=== PATIENT | female | born 1930 | race Caucasian/White ===

== ENCOUNTER 2016-09-19 00:51 | Inpatient (IN) ==
--- NOTE | 2016-09-19 01:09 | Emergency Department Note ---
Disposition Clinical Impression: Atrial fibrillation with RVR, Palpitations Disposition: Admitted As Inpatient Condition: Good General Adult HPI - General Chief complaint: ED Arrhythmia/Palpitations Stated complaint: "heart racing" Time Seen by Provider: 09/19/16 00:57 Source: patient Limitations: no limitations Nursing Notes Reviewed: Yes Vital Signs Reviewed: Yes - History of Present Illness HPI Narrative: 86-year-old female who reports that she ran out of her Pradaxa prescription this morning. She did not know if she could take the rest of her medications if she was not also taken the Pradaxa showed she did not take any of her morning medications. By mid afternoon she was able to refill her Pradaxa and took her evening medications. She has had some generalized fatigue and palpitations and was worried that her heart rate was elevated so she presents to the emergency department. She has a history of A. fib and is taking Pradaxa , diltiazem, Toprol. She has past medical history of A. fib, TIA, hyperlipidemia, hypertension. She states she is having mild occasional palpitations and mild weakness. Otherwise she has no shortness of breath or chest pain. No lower extremity edema that is new. No issues with diarrhea or urinary Radiation: non-radiation Pain Scale: 0 Consistency: constant Improves with: nothing Worsens with: nothing Associated symptoms: Reports: denies other symptoms Treatments Prior to Arrival: none - Related Data Home Medications Medication Instructions Recorded Confirmed Aspirin EC 09/19/16 Cetirizine HCl 09/19/16 Diltiazem HCl [Cardizem] 180 mg BID 09/19/16 09/19/16 Fish Oil [place]-3 Softgel DAILY 09/19/16 Hydrochlorothiazide 25 mg QAM 09/19/16 09/19/16 Lisinopril 20 mg BID 09/19/16 09/19/16 Metoprolol ER-Hctz 25-12.5 mg 25 mg QAM 09/19/16 09/19/16 Montelukast Sodium 10 mg QAM 09/19/16 09/19/16 Oyster Shell Calcium-Vit D Tab 500 unit BID 09/19/16 09/19/16 Pradaxa 75 mg BID 09/19/16 09/19/16 Symbicort 160/4.5 09/19/16 Allergies Allergy/AdvReac Type Severity Reaction Status Date / Time No Known Allergies Allergy Verified 09/19/16 00:55 All systems ED: reviewed and negative except as stated. Constitutional: Denies: fever Eyes: Denies: vision change ENT ED: Denies: throat pain Cardiovascular: Reports: palpitations. Denies: chest pain Respiratory: Denies: cough Gastrointestinal: Denies: abdominal pain, nausea, vomiting Musculoskeletal: Denies: back pain Integumentary: Denies: rash Neurological: Denies: headache Endocrine: Reports: fatigue Past Medical History - Past Medical History Medical history: Reports: atrial fibrillation, hypertension, TIA - Social History Smoking Status: Never smoker Smokeless Tobacco Status: No Alcohol use: Reports: none Drug use: Reports: none Physical Exam - General Limitations: no limitations General appearance: alert, in no apparent distress - Head Head exam: atraumatic - Eye Eye exam: Present: normal appearance, PERRL, EOMI - ENT ENT exam: normal exam, normal oropharynx - Neck Neck exam: Present: normal inspection - Chest Chest inspection: Present: normal inspection - Respiratory Respiratory exam: Present: normal lung sounds bilaterally. Absent: respiratory distress - Cardiovascular Cardiovascular exam: Present: tachycardia, irregular rhythm - Abdominal Exam Abdominal exam: Present: soft, Non-Tender - Extremities Exam Extremities exam: Present: normal inspection - Back Exam Back exam: Present: normal inspection - Neurological Exam Neurological exam: Present: alert, oriented X3 - Psychiatric Psychiatric exam: Present: normal affect, normal mood - Skin Skin exam: Present: warm, dry Course Course Narrative: She presents in A. fib RVR with a rate of 150. EKG does not demonstrate EKG changes aside from A. fib with RVR. She has a known reason why she is in A. fib RVR as she did not take her morning medications which includes 180 mg of diltiazem ER. She is not having any symptoms such as chest pain or shortness of breath. She is not in congestive heart failure. We will draw basic lab work and in addition give her a bolus of Cardizem. If she becomes rate controlled and is able to maintain that we will observe her here for a while before discharging her to go home and resume her home dosage of her medications. If she is unable to keep her rate controlled and we will place her on a Cardizem drip and admit Cardizem bolus did not affect her heart rate. We are starting another bolus with a drip and will admit her to the hospital. She is asymptomatic this time Dr Tariq accepts Vital Signs Temperature 97.7 F 09/19/16 00:52 Pulse Rate 158 09/19/16 00:52 Respiratory Rate 20 09/19/16 00:52 Blood Pressure 200/122 09/19/16 00:52 O2 Sat by Pulse Oximetry 96 09/19/16 00:52 Temperature 97.7 F 09/19/16 00:52 Pulse Rate 134 09/19/16 02:46 Respiratory Rate 16 09/19/16 03:02 Blood Pressure 171/99 09/19/16 03:02 O2 Sat by Pulse Oximetry 95 09/19/16 02:46 Oxygen Delivery Oxygen Delivery Room Air Medical Decision Making - Medical Records Medical records reviewed: Yes I reviewed the patient's medical records. - Lab Data Lab results reviewed: Yes I reviewed the patient's lab results. Result diagrams: 09/19/16 01:07 09/19/16 01:07 Lab Results 09/19/16 09/19/16 09/19/16 Range/Units 01:07 01:07 01:07 WBC 10.4 (4.3-11.1) K/mcL RBC 4.95 (3.82-4.97) M/mcL Hgb 14.1 (11.5-15.4) g/dL Hct 41.9 (35.3-44.9) % MCV 84.6 (83.0-100.0) fL MCH 28.5 (28.0-33.3) pg MCHC 33.7 (31.6-35.5) g/dL RDW 12.2 (11.5-14.5) % Plt Count 163 (140-400) K/mcL MPV 10.9 (9.4-12.4) fL Immature Gran % 0.2 (0-4) % Seg Neutrophils % 45.4 % Lymphocytes % 41.6 % Monocytes % 8.2 % Eosinophils % 4.1 % Basophils % 0.5 % Neutrophils # 4.7 (1.6-8.9) K/mcL Lymphocytes # 4.3 (0.6-4.6) K/mcL Monocytes # 0.9 (0.0-1.3) K/mcL Eosinophils # 0.4 (0.0-0.6) K/mcL Basophils # 0.1 (0.0-0.2) K/mcL PT (9.4-12.1) Seconds INR APTT (26.0-36.0) Seconds Sodium 133 L (136-145) mEq/L Potassium 3.8 (3.5-4.5) mEq/L Chloride 97 L (98-109) mEq/L Carbon Dioxide 27 (19-29) mEq/L BUN 30 H (7-20) mg/dL Creatinine 1.09 (0.57-1.11) mg/dL Est GFR ( Amer) 58 L (> 60) Est GFR (Non-Af Amer) 48 L (> 60) BUN/Creatinine Ratio 28 H (6-26) Glucose 122 H (70-99) mg/dL Calculated Osmolality 283 (280-300) Calcium 10.3 (8.6-10.8) mg/dL Troponin I 0.01 (0-0.03) ng/mL TSH 4.754 (0.350-4.840) mcIU/mL 09/19/16 Range/Units 01:36 WBC (4.3-11.1) K/mcL RBC (3.82-4.97) M/mcL Hgb (11.5-15.4) g/dL Hct (35.3-44.9) % MCV (83.0-100.0) fL MCH (28.0-33.3) pg MCHC (31.6-35.5) g/dL RDW (11.5-14.5) % Plt Count (140-400) K/mcL MPV (9.4-12.4) fL Immature Gran % (0-4) % Seg Neutrophils % % Lymphocytes % % Monocytes % % Eosinophils % % Basophils % % Neutrophils # (1.6-8.9) K/mcL Lymphocytes # (0.6-4.6) K/mcL Monocytes # (0.0-1.3) K/mcL Eosinophils # (0.0-0.6) K/mcL Basophils # (0.0-0.2) K/mcL PT 13.3 H (9.4-12.1) Seconds INR 1.2 APTT 50.8 H (26.0-36.0) Seconds Sodium (136-145) mEq/L Potassium (3.5-4.5) mEq/L Chloride (98-109) mEq/L Carbon Dioxide (19-29) mEq/L BUN (7-20) mg/dL Creatinine (0.57-1.11) mg/dL Est GFR ( Amer) (> 60) Est GFR (Non-Af Amer) (> 60) BUN/Creatinine Ratio (6-26) Glucose (70-99) mg/dL Calculated Osmolality (280-300) Calcium (8.6-10.8) mg/dL Troponin I (0-0.03) ng/mL TSH (0.350-4.840) mcIU/mL - Radiology Data Radiology results reviewed: Yes I reviewed the patient's radiology results. - EKG Data EKG #1 EKG attestation: Yes I reviewed and interpreted this EKG. Rate: tachycardia Rhythm: A.Fib [place]/QRS: normal Interpretation: other (A. fib with RVR. Rate 150. No significant ST changes) Critical Care Time Critical Care Time: Yes Total Critical Care Time: 45 Attestation: Critical care performed: Time is exclusive of separately billable procedures. Time includes: direct patient care, patient reassessment, coordination of patient care, interpretation of data (laboratory data, radiology data, and respiratory data), review of patient's medical records, medical consultation and documentation of patient care. Procedures included in critical care time: Procedures excluded from critical care time: Attestation Statement - Attestation Attestation: I, Amadeo Jacobsen MD, personally evaluated this patient and discussed their management with the resident physician. I reviewed the resident's note and agree with the documented findings, medical decision making, and plan of care. 86-year-old female presents to the emergency department with a complaint of palpitations and weakness. States that she can feel her heart racing slightly and feels weak. She has a history of atrial fibrillation with RVR and this feels like similar episodes. She did miss her morning doses of her medications yesterday because she ran out of her Pradaxa and did not know if she could take her other medications without taking Pradaxa. She had her Pradaxa refill but cannot pick it up until tomorrow. She did go ahead and take her evening medications. She denies any chest pain or shortness of breath. No dizziness or syncope. On examination patient is a well-developed well-nourished elderly female in no acute distress. She is alert and oriented 3. There is no cyanosis or diaphoresis. Chest is nontender to palpation. Breath sounds are clear and equal bilaterally. Heart is tachycardic and irregularly irregular. Abdomen soft and nontender with normal bowel sounds. EKG shows atrial fibrillation with RVR. Chest x-ray negative. Labs reviewed. Patient received a 15 mg bolus of Cardizem with some improvement in her heart rate that she still stated the range of about 100 to 130. She was placed on a Cardizem drip. The hospitalist, Dr. Tariq, was consulted and accepted admission of the patient.
[2016-09-19 01:21] LABS: Basophils # 0.1 K/mcL (0.0-0.2); Basophils % 0.5 %; Eosinophils # 0.4 K/mcL (0.0-0.6); Eosinophils % 4.1 %; Hematocrit 41.9 % (35.3-44.9); Hemoglobin 14.1 g/dL (11.5-15.4); Immature Granulocytes % 0.2 % (0-4); Lymphocytes # 4.3 K/mcL (0.6-4.6); Lymphocytes % 41.6 %; Mean Corpuscular HGB Conc 33.7 g/dL (31.6-35.5); Mean Corpuscular Hemoglobin 28.5 pg (28.0-33.3); Mean Corpuscular Volume 84.6 fL (83.0-100.0); Mean Platelet Volume 10.9 fL (9.4-12.4); Monocytes # 0.9 K/mcL (0.0-1.3); Monocytes % 8.2 %; Neutrophils # 4.7 K/mcL (1.6-8.9); Platelet Count 163 K/mcL (140-400); Red Blood Count 4.95 M/mcL (3.82-4.97); Red Cell Distribution Width 12.2 % (11.5-14.5); Segmented Neutrophils % 45.4 %
[2016-09-19 01:33] LABS: Calcium 10.3 mg/dL (8.6-10.8); Potassium 3.8 mEq/L (3.5-4.5)
[2016-09-19 01:49] LABS: INR 1.2; Prothrombin Time 13.3 Seconds (9.4-12.1)
[2016-09-19 01:52] LABS: Activated Partial Thrombo Time 50.8 Seconds (26.0-36.0)
[2016-09-19 01:55] LABS: Thyroid Stimulating Hormone 4.754 mcIU/mL (0.350-4.840)
[2016-09-19] MEDS ORDERED: Naloxone 0.4 MG/ML INJ IVP PRN (02:29)
[2016-09-19] MEDS ORDERED: Acetaminophen 325 MG TABLET PO PRN (02:29)
[2016-09-19] MEDS ORDERED: Ondansetron 4 MG/2 ML VIAL IVP PRN (02:29)
[2016-09-19] MEDS ORDERED: Metoprolol XL (24 HR) Succ 25 MG TAB.ER.24H PO SCH (02:30)
[2016-09-19] MEDS: *HR* Dabigatran 75 MG CAPSULE PO SCH ×2 (02:37→09:08)
[2016-09-19] MEDS ORDERED: 0.9 % Sodium Chloride 500 ML ONE (02:49)
--- NOTE | 2016-09-19 03:24 | Internal Med History&Physical ---
Date of Encounter: 09/19/16 Time of Encounter: 03:40 Assessment and Plan (1) Atrial fibrillation Current visit: Yes Status: Chronic Patient has a chronic history of atrial fibrillation and missed her dose of Cardizem and Toprol-XL. Patient is currently on Cardizem drip. Continue the same. Admit to inpatient status due to the need for intravenous Cardizem drip to control her heart rate. Expected to be in the hospital for at least overnights. Moderate risk due to risk of lethal arrhythmias. Expected discharge disposition is to home. Resume by mouth heart rate control medications. Resume pradaxa. She can be discharged home and her heart rate is adequately controlled on her by mouth medications and she is off the Cardizem drip. Qualifiers: Atrial fibrillation type: chronic Qualified Code(s): I48.2 - Chronic atrial fibrillation (2) HTN (hypertension) Current visit: Yes Status: Chronic Control blood pressure. Continue current medications at home doses. Qualifiers: Hypertension type: essential hypertension Qualified Code(s): I10 - Essential (primary) hypertension Internal Medicine - H&P: HPI Chief complaint: Palpitations Admitted From: Emergency Dept Plans for Post Hospital Care: Home History of present illness: Ms. Mcfarlane is a 86 year old female with a history of atrial fibrillation on pradaxa who presented to the emergency department due to palpitations. Apparently, the patient ran out of her anticoagulant medication. 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 However, the pharmacy stated that the prescription would not be ready for pickup until 09/19/2016. The patient was under the mistaken impression that she will should not take any of her other medications unless she takes her anticoagulant medication. Hence, she did not take her Cardizem or Toprol-XL on the morning of 09/18/2016. However, she states that she took her Cardizem 180 mg on the evening of 2016. The patient started experiencing palpitations last night around 10 PM. Hence, she presented to the emergency department. She was found to have a heart rate of 150s. She was given intravenous Cardizem in the placed on a Cardizem drip. She was given her anticoagulant medication in the emergency department. She reports intermittent lightheadedness. She denies any chest pain, shortness of breath, cough or wheezing. She denies any fever or chills. She denies any swelling in her legs. She denies abdominal pain, nausea or vomiting. Past Med Surg Social Fam HX - Past Medical History Attestation: Yes The following information was validated with the patient. Source: patient Medical history: atrial fibrillation, hypertension, TIA Psychiatric history: no psych history - Past Surgical History Surgical History: non-contributory - Social History Smoking Status: Never smoker Smokeless Tobacco Status: No Alcohol use: none Drug use: none - Additional Family History Additional family history: Reviewed; not pertinent Internal Medicine - H&P: Meds Aspirin EC 09/19/16 [History] Cetirizine HCl 09/19/16 [History] Diltiazem HCl [Cardizem] 180 mg BID 09/19/16 [History] Fish Oil [place]-3 Softgel DAILY 09/19/16 [History] Hydrochlorothiazide 25 mg QAM 09/19/16 [History] Lisinopril 20 mg BID 09/19/16 [History] Metoprolol ER-Hctz 25-12.5 mg 25 mg QAM 09/19/16 [History] Montelukast Sodium 10 mg QAM 09/19/16 [History] Oyster Shell Calcium-Vit D Tab 500 unit BID 09/19/16 [History] Pradaxa 75 mg BID 09/19/16 [History] Symbicort 160/4.5 09/19/16 [History] Allergies No Known Allergies Allergy (Verified 09/19/16 00:55) All Systems PM: A 10-system review of systems was performed and is negative for pertinent findings except as documented above in the HPI. Review of systems: 10 systems have been reviewed and are negative except as mentioned in the history of present illness - Constitutional Vitals: Temp Pulse Resp BP Pulse Ox 97.7 F 134 16 171/99 95 09/19/16 00:52 09/19/16 02:46 09/19/16 03:02 09/19/16 03:02 09/19/16 02:46 Exam: Gen.: Lying in bed. No acute distress. Eyes: Pupils equal, round and reactive to light. Extraocular muscles intact. ENT: Moist mucous membranes. No oropharyngeal erythema or discharge. Chest: Clear to auscultation bilaterally. No adventitious sounds present. CVS: First and second heart sounds present. No murmurs, rubs or gallops. Irregularly irregular rate and rhythm. Tachycardia present. Abdomen: Soft, nontender, nondistended. Bowel sounds present. No hepatosplenomegaly. Skin: No decubitus ulcers appreciated. EQUITIES ANALYST: No focal neuro deficits present. Psychiatric: Alert, awake and oriented to time, place and person. Lymphatic system: No lymphadenopathy appreciated Internal Med - H&P Results - Labs CBC & Chem 7: 09/19/16 01:07 09/19/16 01:07 - EKG Data -: EKG Interpreted by Myself (Atrial fibrillation with rapid ventricular response) - Diagnostic Studies Chest x-ray Status: image reviewed by me (No acute infiltrates seen)
[2016-09-19] MEDS: Diltiazem CD (24hr) 180 MG CAPSULE PO SCH ×2 (04:10→09:08)
--- NOTE | 2016-09-19 08:35 | Discharge Summary ---
<Ailyn Rasmussen - Last Filed: 09/19/16 08:31> Date of Encounter: 09/19/16 Time of Encounter: 08:31 - Discharge Diagnosis (1) Palpitations Status: Acute (2) Atrial fibrillation Status: Chronic Qualifiers: Atrial fibrillation type: chronic Qualified Code(s): I48.2 - Chronic atrial fibrillation (3) HTN (hypertension) Status: Chronic Qualifiers: Hypertension type: essential hypertension Qualified Code(s): I10 - Essential (primary) hypertension - Discharge Medications Prescriptions: Dabigatran [Pradaxa] 75 mg PO BID #60 capsule Diltiazem CD (24hr) [Cardizem CD] 180 mg PO DAILY #30 cap.er.24h Metoprolol Succinate 25 mg PO DAILY #30 tab.er.24h Home Medications: Albuterol Sulfate [Ventolin Hfa] 2 puff IH Q4H PRN 09/19/16 [History] Aspirin Enteric Coated [Aspirin EC] 81 mg PO DAILY 09/19/16 [History] Besifloxacin HCl [Besivance] 1 drop OP TID 09/19/16 [History] Bromfenac Sodium [Prolensa] 1 drop OP TID 09/19/16 [History] Budesonide/Formoterol 160/4.5 [Symbicort 160/4.5] 2 puff IH BIDR 09/19/16 [ History] Calcium Carbonate/Vitamin D3 [Oyster Shell Calcium-Vit D Tab] 1 tab PO BID 09/19 [History] Cetirizine HCl [All Day Allergy] 10 mg PO DAILY 09/19/16 [History] Dabigatran [Pradaxa] 75 mg PO BID #60 capsule 09/19/16 [Rx] Difluprednate [Durezol] 1 drop OP TID 09/19/16 [History] Diltiazem CD (24hr) [Cardizem CD] 180 mg PO DAILY #30 cap.er.24h 09/19/16 [Rx] Lisinopril [Zestril] 20 mg PO BID 09/19/16 [History] Metoprolol Succinate 25 mg PO DAILY #30 tab.er.24h 09/19/16 [Rx] Montelukast [Singulair] 10 mg PO DAILY 09/19/16 [History] [place]-3S/Dha/Epa/Fish Oil [Fish Oil [place]-3 Softgel] 1,000 mg PO DAILY 09/19/16 [History] hydroCHLOROthiazide [Hydrochlorothiazide] 25 mg PO DAILY 09/19/16 [History] Allergies/Adverse Reactions: Allergies No Known Allergies Allergy (Verified 09/19/16 00:55) Date of admission: 09/19/16 04:12 Primary care physician: Daniel Ceja MD Discharging clinician: Ailyn Rasmussen Anticipated date of discharge: 09/19/16 - Patient Status Disposition: Home, Self-Care Condition: Good Functional capacity at discharge: independent ambulation Overall status at discharge: patient is progressing back to baseline - Discharge Instructions Instructions: Metoprolol (By mouth), Diltiazem (By mouth), Dabigatran (By mouth ), Atrial Fibrillation (DC), Chronic Hypertension (DC) Follow Up With: Daniel Ceja MD [Primary Care Provider] - 10/03/16 1:30 pm Rosa Isela Bhagat DO [Partnered Physician] - (office will call patient at home with appointment) - Diet and Activity Activity: increase activity as tolerated Diet: advance to your usual diet Interval History: Ms. Mcfarlane is a 86 yo female with a history of atrial fibrillation on pradaxa who presented to the emergency department due to palpitations. Apparently, the patient ran out of her anticoagulant medication. This prescription was called in by her basket hand weaver. However, the pharmacy stated that the prescription would not be ready for pickup until 09/19/2016. The patient was under the mistaken impression that she will should not take any of her other medications unless she takes her anticoagulant medication, so did not take her Cardizem or Toprol-XL on 09/18/2016. She was having heart rate of 150-160s She was given intravenous Cardizem in the placed on a Cardizem drip overnight. Once she was rate controlled at 80s-90s, she was converted to PO medicationa dncardizem drip was stopped. She was given missed dose of anticoagulant. She denies any chest pain, shortness of breath, cough or wheezing. She denies any fever or chills. She denies any swelling in her legs. She denies abdominal pain, nausea or vomiting Hospital course: Ms. Mcfarlane is a 86 year old female - Time Spent with Patient Total time spent providing and/or coordinating discharge services: Less than 30 minutes - Constitutional Vitals: Temp Pulse Resp BP Pulse Ox 98.4 F 75 16 130/82 97 09/19/16 06:48 09/19/16 06:48 09/19/16 06:48 09/19/16 06:48 09/19/16 04:09 General appearance: Present: cooperative, A&O X 3, pleasant, no acute distress, answers questions appropriately - Head Head exam: Present: atraumatic, normocephalic - Eye Eye exam: Present: EOMI Pupils: Present: PERRL Additional comments: right eye covered with bandage from recent cataract surgery - Neck Neck exam general surgery: Present: supple, trachea midline. Absent: lymphadenopathy - Respiratory Respiratory exam: Present: CTAB. Absent: accessory muscle use, rales, rhonchi, wheezes - Cardiovascular Cardiovascular exam: Present: irregular rhythm (HR 80s-90s), +S1, +S2. Absent: tachycardia - GI/Abdominal GI/Abdominal exam: Present: normal bowel sounds, soft, no peritoneal signs. Absent: distended, tenderness - Extremities Exam Extremities exam: Present: warm, radial pulses palpable and symetrical. Absent : calf tenderness, cyanotic, pedal edema - Neurological Exam Neurological exam: Present: CN II-XII intact, oriented X3, no focal deficits. Absent: pronater drift, facial droop, speech deficit - Skin Skin exam: Present: dry, intact <Jermaine Rea - Last Filed: 09/19/16 12:57> Date of Encounter: 09/19/16 - Discharge Diagnosis (1) Atrial fibrillation Priority: Primary Status: Chronic Qualifiers: Atrial fibrillation type: chronic Qualified Code(s): I48.2 - Chronic atrial fibrillation (2) Palpitations Priority: Secondary Status: Resolved (3) HTN (hypertension) Priority: Secondary Status: Chronic Qualifiers: Hypertension type: essential hypertension Qualified Code(s): I10 - Essential (primary) hypertension Date of admission: 09/19/16 04:12 Primary care physician: Daniel Ceja MD Hospital course: Ms. Mcfarlane is a 86 year old female - Time Spent with Patient Total time spent providing and/or coordinating discharge services: My time for discharge was 36min - Constitutional Vitals: Temp Pulse Resp BP Pulse Ox 98.4 F 89 16 117/60 97 09/19/16 06:48 09/19/16 09:12 09/19/16 09:12 09/19/16 09:12 09/19/16 09:12 - Attending Attestation I examined this patient and my medical decision-making was reviewed with the Resident Physician on 09/19/16. I agree with the documented findings, disposition and treatment plan as described except to the extent set forth below. Ms. Mcfarlane is doing OK this morning. She is now rate controlled and asymptomatic. No CP or SOB. No fever. Exam Alert. Comfortable Heart irreg Lungs clear No edema Plan D/C home today on usual meds. This patient was admitted inpatient at the time of admission. At that time the anticipated LOS was greater than 2 midnights as she was on a cardizem drip with rapid a fib. She has quickly become rate controlled and is at baseline and therefore will be discharged today after only 1 midnight.
[2016-09-19 09:19] VITALS: BP 117/60
--- NOTE | 2016-09-19 11:33 | Electrocardiograph Report ---
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
== END 2016-09-19 12:30 | disposition home or self-care (01) | DRG 310 ==
LOC: 2NENU 00:51 → EMEROO 00:51 → 2NENU 03:08
PROVIDERS: ADMIT Internal Medicine; ATTEND Internal Medicine

== ENCOUNTER 2016-09-21 13:29 | Observation (INO) ==
--- NOTE | 2016-09-21 13:58 | Emergency Department Note ---
Disposition Clinical Impression: Atrial fibrillation with RVR Disposition: Admitted As Inpatient Condition: Good Arrhythmia/Palpitations HPI - General Chief Complaint: ED Arrhythmia/Palpitations Stated Complaint: High BP/HR "hx of AFib" Time Seen by Provider: 09/21/16 13:46 Source: patient Limitations: no limitations Nursing Notes Reviewed: Yes Vital Signs Reviewed: Yes - History of Present Illness HPI Narrative: Patient was recently seen and evaluated for atrial fibrillation with RVR and discharged after rate control. Patient discharged 2 days ago. Patient was told to not take her Cardizem for 2 days and presents today one hour after taking her next dose of Cardizem secondary to heart rate of 170. Patient is currently back in A. fib with RVR. There is some associated mild chest pressure with her initial rapid heart rate. Patient states no previous heart attack and has not had a recent stress test or cardiac catheter. Patient is a patient of Dr. Bhagat. - Related Data Home Medications Medication Instructions Recorded Confirmed Albuterol Sulfate [Ventolin Hfa] 2 puff IH Q4H PRN 09/19/16 09/21/16 Aspirin Enteric Coated [Aspirin EC] 81 mg PO DAILY 09/19/16 09/21/16 Besifloxacin HCl [Besivance] 1 drop OP TID 09/19/16 09/21/16 Bromfenac Sodium [Prolensa] 1 drop OP TID 09/19/16 09/21/16 Budesonide/Formoterol 160/4.5 2 puff IH BIDR 09/19/16 09/21/16 [Symbicort 160/4.5] Calcium Carbonate/Vitamin D3 1 tab PO BID 09/19/16 09/21/16 [Oyster Shell Calcium-Vit D Tab] Cetirizine HCl [All Day Allergy] 10 mg PO DAILY 09/19/16 09/21/16 Difluprednate [Durezol] 1 drop OP TID 09/19/16 09/21/16 Lisinopril [Zestril] 20 mg PO BID 09/19/16 09/21/16 Montelukast [Singulair] 10 mg PO DAILY 09/19/16 09/21/16 [place]-3S/Dha/Epa/Fish Oil [Fish 1,000 mg PO DAILY 09/19/16 09/21/16 Oil [place]-3 Softgel] hydroCHLOROthiazide 25 mg PO DAILY 09/19/16 09/21/16 [Hydrochlorothiazide] Previous Rx's Medication Instructions Recorded Dabigatran [Pradaxa] 75 mg PO BID #60 capsule 09/19/16 Diltiazem CD (24hr) [Cardizem CD] 180 mg PO DAILY #30 cap.er.24h 09/19/16 Metoprolol Succinate 25 mg PO DAILY #30 tab.er.24h 09/19/16 Allergies Allergy/AdvReac Type Severity Reaction Status Date / Time No Known Allergies Allergy Verified 09/19/16 00:55 Review of Systems: CONSTITUTIONAL: No weight loss, fever, chills, weakness or fatigue. HEENT: Eyes: No visual changes. Ears, Nose, Throat: No hearing loss, difficulty talking or unable to swallow. SKIN: No rash or itching. CARDIOVASCULAR: Palpitations and chest pressure RESPIRATORY: No shortness of breath, cough or sputum. GASTROINTESTINAL: No anorexia, nausea, vomiting or diarrhea. No abdominal pain or blood. GENITOURINARY: No burning on urination or hematuria. NEUROLOGICAL: No headache, dizziness, syncope, paralysis, ataxia, numbness or tingling in the extremities. No change in bowel or bladder control. MUSCULOSKELETAL: No muscle pain, back pain, joint pain or stiffness. Past Medical History - Past Medical History Medical history: Reports: atrial fibrillation, hypertension, TIA Surgical history: Reports: non-contributory Psychiatric history: Reports: no psych history - Social History Smoking Status: Never smoker Smokeless Tobacco Status: No Alcohol use: Reports: none Drug use: Reports: none Physical Exam General appearance: NAD, conversant Eyes: anicteric sclerae, moist conjunctivae; PERRL HENT: Atraumatic; oropharynx clear with moist mucous membranes and no mucosal ulcerations Neck: Normal inspection; Trachea midline; FROM, supple Lungs: CTA, with normal respiratory effort and no intercostal retractions CV: Irregular rate and rhythm, tachycardic Abdomen: Soft, non-tender; no rebound or gaurding Extremities: No peripheral edema or extremity lymphadenopathy Skin: Normal temperature; no rash, ulcers or lesions Psych: Appropriate mood and affect Neuro: alert and oriented to person, place and time - General Limitations: no limitations General appearance: alert, in no apparent distress Course - Reevaluation(s) Reevaluation #1: Patient's heart rate is not controlled with the Cardizem bolus as well as by mouth Cardizem. Patient given another bolus as well as a Cardizem drip. Her heart rate increased to the 130s and 140s and her blood pressure started to increase again to systolic of 170. Patient will be brought in for further management. - Consultations Consultation #1: Discussed with Dr. Salinas. As long as heart rate is controlled in the low 100s she can be given a dose of Cardizem 30 mg by mouth every 6 and follow-up outpatient. Consultation #2: Dicussed with hospitalistArnie. Pt accepted. Vital Signs Temperature 98.3 F 09/21/16 13:45 Pulse Rate 160 09/21/16 13:45 Respiratory Rate 18 09/21/16 13:45 Blood Pressure 179/117 09/21/16 13:45 O2 Sat by Pulse Oximetry 96 09/21/16 13:45 Temperature 98.3 F 09/21/16 13:45 Pulse Rate 94 09/21/16 16:30 Respiratory Rate 18 09/21/16 17:21 Blood Pressure 126/90 09/21/16 17:21 O2 Sat by Pulse Oximetry 93 09/21/16 16:30 Oxygen Delivery Oxygen Delivery Room Air Arrhythmia/Palpitations - Medical Records Medical records reviewed: Yes I reviewed the patient's medical records. - Lab Data Lab results reviewed: Yes I reviewed the patient's lab results. Result diagrams: 09/21/16 14:06 09/21/16 14:06 Lab Results 09/21/16 09/21/16 09/21/16 Range/Units 14:06 14:06 14:06 WBC 9.9 (4.3-11.1) K/mcL RBC 4.87 (3.82-4.97) M/mcL Hgb 14.1 (11.5-15.4) g/dL Hct 42.3 (35.3-44.9) % MCV 86.9 (83.0-100.0) fL MCH 29.0 (28.0-33.3) pg MCHC 33.3 (31.6-35.5) g/dL RDW 12.3 (11.5-14.5) % Plt Count 178 (140-400) K/mcL MPV 11.4 (9.4-12.4) fL Immature Gran % 0.2 (0-4) % Seg Neutrophils % 46.6 % Lymphocytes % 40.2 % Monocytes % 8.4 % Eosinophils % 3.9 % Basophils % 0.7 % Neutrophils # 4.6 (1.6-8.9) K/mcL Lymphocytes # 4.0 (0.6-4.6) K/mcL Monocytes # 0.8 (0.0-1.3) K/mcL Eosinophils # 0.4 (0.0-0.6) K/mcL Basophils # 0.1 (0.0-0.2) K/mcL Sodium 137 (136-145) mEq/L Potassium 4.0 (3.5-4.5) mEq/L Chloride 102 (98-109) mEq/L Carbon Dioxide 27 (19-29) mEq/L BUN 34 H (7-20) mg/dL Creatinine 1.15 H (0.57-1.11) mg/dL Est GFR ( Amer) 54 L (> 60) Est GFR (Non-Af Amer) 45 L (> 60) BUN/Creatinine Ratio 30 H (6-26) Glucose 115 H (70-99) mg/dL Calculated Osmolality 293 (280-300) Calcium 9.4 (8.6-10.8) mg/dL Magnesium 1.7 (1.6-2.6) mg/dL Troponin I 0.01 (0-0.03) ng/mL TSH 2.327 (0.350-4.840) mcIU/mL - EKG Data EKG attestation: Yes I reviewed and interpreted this EKG. EKG results narrative: EKG shows atrial fibrillation with ventricular rate of 162. QRS 71. QTC 343.ST elevations or depressions. EKG similar in appearance to 09/19/16.
[2016-09-21] MEDS ORDERED: 0.9 % Sodium Chloride 1,000 ML ONE (14:05)
[2016-09-21 14:12] LABS: Basophils # 0.1 K/mcL (0.0-0.2); Basophils % 0.7 %; Eosinophils # 0.4 K/mcL (0.0-0.6); Eosinophils % 3.9 %; Hematocrit 42.3 % (35.3-44.9); Hemoglobin 14.1 g/dL (11.5-15.4); Immature Granulocytes % 0.2 % (0-4); Lymphocytes % 40.2 %; Mean Corpuscular HGB Conc 33.3 g/dL (31.6-35.5); Mean Corpuscular Volume 86.9 fL (83.0-100.0); Mean Platelet Volume 11.4 fL (9.4-12.4); Monocytes # 0.8 K/mcL (0.0-1.3); Monocytes % 8.4 %; Neutrophils # 4.6 K/mcL (1.6-8.9); Platelet Count 178 K/mcL (140-400); Red Blood Count 4.87 M/mcL (3.82-4.97); Red Cell Distribution Width 12.3 % (11.5-14.5); Segmented Neutrophils % 46.6 %
[2016-09-21 14:23] LABS: Calcium 9.4 mg/dL (8.6-10.8); Magnesium 1.7 mg/dL (1.6-2.6)
--- NOTE | 2016-09-21 14:31 | Emergency Department Note ---
START Narrative - START START: I examined this patient and my medical decision-making was reviewed with the PEDIATRIC CRITICAL CARE NURSE/PA/Advanced Practice Nurse/Resident Physician. I agree with the documented findings, disposition and treatment plan as described except to the extent set forth below. pt back in A fib with RVR. HR coming down after bolus of med here. she looks well.
[2016-09-21 14:46] LABS: Thyroid Stimulating Hormone 2.327 mcIU/mL (0.350-4.840)
[2016-09-21] MEDS ORDERED: 0.9 % Sodium Chloride 1,000 ML IVC ONE (15:05)
[2016-09-21] MEDS ORDERED: Naloxone 0.4 MG/ML INJ IVP PRN (18:56)
[2016-09-21] MEDS ORDERED: Acetaminophen 325 MG TABLET PO PRN (18:56)
[2016-09-21] MEDS ORDERED: Ondansetron 4 MG/2 ML VIAL IVP PRN (18:56)
--- NOTE | 2016-09-21 20:59 | Internal Med History&Physical ---
Date of Encounter: 09/21/16 Time of Encounter: 21:07 Assessment and Plan (1) Atrial fibrillation with RVR Current visit: No Status: Acute Patient presented due to high heart rate, on presentation EKG showed A. fib with RVR heart rate of 162. Patient was given Cardizem bolus of 20 mg, and then 15 mg, as well as 30 mg by mouth, started on a Cardizem drip, her heart rate became controlled. We will give 12.5 mg of metoprolol tonight as well as 30 mg of Cardizem by mouth tonight and stop drip. Resume home doses of medications tomorrow morning, and cloudy metoprolol, Cardizem, and Pradaxa. Continuous threat monitoring analyst. (2) HTN (hypertension) Current visit: No Status: Chronic Patient's blood pressure has been controlled after getting Cardizem. Continue home doses of medications and monitor. Qualifiers: Hypertension type: essential hypertension Qualified Code(s): I10 - Essential (primary) hypertension (3) Difficulty following instructions Current visit: Yes Status: Acute Patient is just discharged 2 days ago for A. fib with RVR. That admission was due to confusion with her medications, as she had run out of her Pradaxa, and thought she was to stop her other medications if she was not taking her Pradaxa while she related it to be followed by the pharmacy. She again had confusion with her medication instructions, reporting that she thought she was to hold her blood pressure and heart rate medications if her blood pressure was well. Her blood pressure was in the 110s since discharge so she did not take any of her medications until today. Pharmacy education ordered. (4) DVT prophylaxis Current visit: Yes Status: Acute anti-embolic stockings Patient on Pradaxa for Afib. additional pharmacologic prophylaxis not warranted. Internal Medicine - H&P: HPI Chief complaint: palpitations Admitted From: Emergency Dept Plans for Post Hospital Care: Home History of present illness: Ms. Mcfarlane is a 86 year old female with hypertension, atrial fibrillation on Pradaxa, TIA who presented to the emergency department today with complaints of fast heart rate. Patient was just discharged 2 days ago for A. fib with RVR, she was confused about how to take her medication and thought she was told to hold all her blood pressure and heart rate medications if her blood pressure was low, so she just started taking her medications again today. She reports she checked her blood pressure and pulse and they were both high, heart rate in the 150s to 170s so she came to the emergency department today. She does report some chest pressure with a fast heart rate. She denies chest pain, shortness of breath, headache, lightheadedness, nausea, vomiting, diarrhea, fever, chills, sweats. Evaluation in the emergency department included an EKG which showed A. fib with heart rate 162. Troponin was normal at 0.01. All other labs were normal. She was given boluses of Cardizem, 30 mg of by mouth Cardizem, and started on a drip, and her heart rate was controlled in the 90s. On exam, patient alert and oriented, in no acute distress. Heart had a regular rhythm, rate controlled. Lungs are clear bilaterally to auscultation. No peripheral edema. Past Med Surg Social Fam HX - Past Medical History Medical history: atrial fibrillation, hypertension, TIA Psychiatric history: no psych history - Past Surgical History Surgical History: non-contributory - Social History Smoking Status: Never smoker Smokeless Tobacco Status: No Alcohol use: none Drug use: none - Family History Brother Age at : 84 Cause of : shingles Hx Family Cardiac Disorders: Yes (DC) Internal Medicine - H&P: Meds Albuterol Sulfate [Ventolin Hfa] 2 puff IH Q4H PRN 09/19/16 [History] Aspirin Enteric Coated [Aspirin EC] 81 mg PO DAILY 09/19/16 [History] Besifloxacin HCl [Besivance] 1 drop OP TID 09/19/16 [History] Bromfenac Sodium [Prolensa] 1 drop OP TID 09/19/16 [History] Budesonide/Formoterol 160/4.5 [Symbicort 160/4.5] 2 puff IH BIDR 09/19/16 [ History] Calcium Carbonate/Vitamin D3 [[place] Calcium-Vit D Tab] 1 tab PO BID 09/19 [History] Cetirizine HCl [All Day Allergy] 10 mg PO DAILY 09/19/16 [History] Dabigatran [Pradaxa] 75 mg PO BID #60 capsule 09/19/16 [Rx] Difluprednate [Durezol] 1 drop OP TID 09/19/16 [History] Diltiazem CD (24hr) [Cardizem CD] 180 mg PO DAILY #30 cap.er.24h 09/19/16 [Rx] Lisinopril [Zestril] 20 mg PO BID 09/19/16 [History] Metoprolol Succinate 25 mg PO DAILY #30 tab.er.24h 09/19/16 [Rx] Montelukast [Singulair] 10 mg PO DAILY 09/19/16 [History] [place]-3S/Dha/Epa/Fish Oil [Fish Oil [place]-3 Softgel] 1,000 mg PO DAILY 09/19/16 [History] hydroCHLOROthiazide [Hydrochlorothiazide] 25 mg PO DAILY 09/19/16 [History] Allergies No Known Allergies Allergy (Verified 09/19/16 00:55) All Systems PM: A 10-system review of systems was performed and is negative for pertinent findings except as documented above in the HPI. - Constitutional Constitutional: no chills, no fever(s), no night sweats - EENT Eyes: no change in vision, no discharge, no pain, no photophobia Ears: no ear discharge, no ear pain, no tinnitus Nose, mouth and throat: no dysphagia, no nasal discharge, no neck pain, no sore throat - Cardiovascular Cardiovascular ROS IM: palpitations, no chest pain, no diaphoresis, no dyspnea, no lightheadedness, no syncope - Respiratory Respiratory: no cough, no dyspnea, no wheezing, no excessive phlegm production - Gastrointestinal Gastrointestinal: no abdominal pain, no diarrhea, no hematemesis, no hematochezia, no melena, no nausea, no vomiting - Genitourinary Genitourinary: no change in urinary stream, no dysuria, no flank pain, no hematuria - Musculoskeletal Musculoskeletal ROS IM: no numbness, no tingling - Integumentary Integumentary IM: no rash, no unusual bruising - Neurological Neurological ROS: no confusion, no convulsions, no focal weakness, no numbness, no tingling, no tremor(s) - Hematologic/Lymphatic Hematologic/Lymphatic: no easy bruising - Constitutional Vitals: Temp Pulse Resp BP Pulse Ox 98.3 F 94 18 126/90 94 09/21/16 13:45 09/21/16 16:30 09/21/16 17:21 09/21/16 17:21 09/21/16 20:02 General appearance: Present: A&O X 3, pleasant, no acute distress - Head Head exam: Present: atraumatic, normocephalic - Eye Eye exam: Present: PERRL, conjuntiva pink, sclera anicteric Pupils: Present: PERRL - Neck Neck exam general surgery: Present: supple, trachea midline. Absent: lymphadenopathy - Respiratory Respiratory exam: Present: CTAB. Absent: accessory muscle use, rales, rhonchi, wheezes - Cardiovascular Cardiovascular exam: Present: RRR, +S1, +S2. Absent: diastolic murmur, gallop, rubs, systolic murmur - GI/Abdominal GI/Abdominal exam: Present: normal bowel sounds, soft, no peritoneal signs. Absent: distended, tenderness - Extremities Exam Extremities exam: Present: warm, radial pulses palpable and symetrical. Absent : calf tenderness, cyanotic, pedal edema - Neurological Exam Neurological exam: Present: CN II-XII intact, oriented X3, no focal deficits. Absent: pronater drift, facial droop, speech deficit - Skin Skin exam: Present: dry, intact Internal Med - H&P Results - Labs CBC & Chem 7: 09/21/16 14:06 09/21/16 14:06 Labs: All Lab Results (24 Hours) 09/21/16 09/21/16 09/21/16 Range/Units 14:06 14:06 14:06 WBC 9.9 (4.3-11.1) K/mcL RBC 4.87 (3.82-4.97) M/mcL Hgb 14.1 (11.5-15.4) g/dL Hct 42.3 (35.3-44.9) % MCV 86.9 (83.0-100.0) fL MCH 29.0 (28.0-33.3) pg MCHC 33.3 (31.6-35.5) g/dL RDW 12.3 (11.5-14.5) % Plt Count 178 (140-400) K/mcL MPV 11.4 (9.4-12.4) fL Immature Gran % 0.2 (0-4) % Seg Neutrophils % 46.6 % Lymphocytes % 40.2 % Monocytes % 8.4 % Eosinophils % 3.9 % Basophils % 0.7 % Neutrophils # 4.6 (1.6-8.9) K/mcL Lymphocytes # 4.0 (0.6-4.6) K/mcL Monocytes # 0.8 (0.0-1.3) K/mcL Eosinophils # 0.4 (0.0-0.6) K/mcL Basophils # 0.1 (0.0-0.2) K/mcL Sodium 137 (136-145) mEq/L Potassium 4.0 (3.5-4.5) mEq/L Chloride 102 (98-109) mEq/L Carbon Dioxide 27 (19-29) mEq/L BUN 34 H (7-20) mg/dL Creatinine 1.15 H (0.57-1.11) mg/dL Est GFR ( Amer) 54 L (> 60) Est GFR (Non-Af Amer) 45 L (> 60) BUN/Creatinine Ratio 30 H (6-26) Glucose 115 H (70-99) mg/dL Calculated Osmolality 293 (280-300) Calcium 9.4 (8.6-10.8) mg/dL Magnesium 1.7 (1.6-2.6) mg/dL Troponin I 0.01 (0-0.03) ng/mL TSH 2.327 (0.350-4.840) mcIU/mL 09/21/16 Range/Units 20:21 WBC (4.3-11.1) K/mcL RBC (3.82-4.97) M/mcL Hgb (11.5-15.4) g/dL Hct (35.3-44.9) % MCV (83.0-100.0) fL MCH (28.0-33.3) pg MCHC (31.6-35.5) g/dL RDW (11.5-14.5) % Plt Count (140-400) K/mcL MPV (9.4-12.4) fL Immature Gran % (0-4) % Seg Neutrophils % % Lymphocytes % % Monocytes % % Eosinophils % % Basophils % % Neutrophils # (1.6-8.9) K/mcL Lymphocytes # (0.6-4.6) K/mcL Monocytes # (0.0-1.3) K/mcL Eosinophils # (0.0-0.6) K/mcL Basophils # (0.0-0.2) K/mcL Sodium (136-145) mEq/L Potassium (3.5-4.5) mEq/L Chloride (98-109) mEq/L Carbon Dioxide (19-29) mEq/L BUN (7-20) mg/dL Creatinine (0.57-1.11) mg/dL Est GFR ( Amer) (> 60) Est GFR (Non-Af Amer) (> 60) BUN/Creatinine Ratio (6-26) Glucose (70-99) mg/dL Calculated Osmolality (280-300) Calcium (8.6-10.8) mg/dL Magnesium (1.6-2.6) mg/dL Troponin I 0.01 (0-0.03) ng/mL TSH (0.350-4.840) mcIU/mL - Diagnostic Studies Chest x-ray Additional comments: Chest X-Ray 09/21/16 13:57 IMPRESSION: No evidence of acute cardiopulmonary abnormality. D/ / Oc Reinoso MD / Oc Reinoso MD Interpreting Provider: Oc Reinoso MD
[2016-09-21] MEDS: *HR* Dabigatran 75 MG CAPSULE PO SCH (21:11)
[2016-09-21] MEDS: Lisinopril 20 MG TABLET PO SCH (21:17)
[2016-09-21] MEDS: Budesonide/Formoterol 160/4.5 MDI IH SCH (22:49)
[2016-09-22 03:02] LABS: Basophils # 0.1 K/mcL (0.0-0.2); Basophils % 0.6 %; Eosinophils # 0.3 K/mcL (0.0-0.6); Eosinophils % 4.1 %; Immature Granulocytes % 0.1 % (0-4); Lymphocytes # 2.6 K/mcL (0.6-4.6); Lymphocytes % 31.6 %; Mean Corpuscular HGB Conc 33.3 g/dL (31.6-35.5); Mean Corpuscular Hemoglobin 29.4 pg (28.0-33.3); Mean Corpuscular Volume 88.2 fL (83.0-100.0); Mean Platelet Volume 11.6 fL (9.4-12.4); Monocytes # 0.8 K/mcL (0.0-1.3); Monocytes % 9.2 %; Neutrophils # 4.6 K/mcL (1.6-8.9); Platelet Count 158 K/mcL (140-400); Red Blood Count 4.42 M/mcL (3.82-4.97); Red Cell Distribution Width 12.3 % (11.5-14.5); Segmented Neutrophils % 54.4 %
[2016-09-22 03:14] LABS: Calcium 9.1 mg/dL (8.6-10.8); Potassium 4.3 mEq/L (3.5-4.5)
[2016-09-22] MEDS: Lisinopril 20 MG TABLET PO SCH (08:23)
[2016-09-22] MEDS: Loratadine 10 MG TABLET PO SCH (08:23)
[2016-09-22] MEDS: *HR* Dabigatran 75 MG CAPSULE PO SCH ×2 (08:23→20:34)
[2016-09-22] MEDS: Diltiazem CD (24hr) 180 MG CAPSULE PO SCH (08:23)
[2016-09-22] MEDS: hydroCHLOROthiazide 25 MG TABLET PO SCH (08:23)
[2016-09-22] MEDS: Aspirin Enteric Coated 81 MG Tablet PO SCH (08:23)
[2016-09-22] MEDS: Metoprolol XL (24 HR) Succ 25 MG TAB.ER.24H PO SCH (08:23)
[2016-09-22] MEDS: Budesonide/Formoterol 160/4.5 MDI IH SCH ×2 (10:30→20:02)
--- NOTE | 2016-09-22 11:49 | Internal Med Progress Note ---
<Yeyo Romero - Last Filed: 09/22/16 11:46> Date of Encounter: 09/22/16 Time of Encounter: 11:46 - Assessment and plan (1) Atrial fibrillation with RVR Current Visit: No Status: Acute Assessment and plan: Patient misunderstood the medication instruction, no acute event overnight, her heart rate has been stable with combination of Cardizem CD 180 mg by mouth daily and Toprol-XL 25 mg by mouth daily, will continue to closely monitor her heart rate for the next 24 hours, likely discharge to home tomorrow. Continue Pradaxa for chronic anticoagulation therapy. (2) HTN (hypertension) Current Visit: No Status: Chronic Assessment and plan: We will cut down lisinopril to 20 mg by mouth daily, continue calcium channel new, beta new, hydrochlorothiazide, blood pressure has been stable. Qualifiers: Hypertension type: essential hypertension Qualified Code(s): I10 - Essential (primary) hypertension (3) DVT prophylaxis Current Visit: Yes Status: Acute Assessment and plan: Pradaxa. - Subjective Interval history: Patient seen and examined. Patient states that she checks her blood pressure and heart rate at home and adjust medication based on those numbers by her own discretion, no acute event overnight, no active chest pain or shortness of breath at this time. - Constitutional Vitals: Temp Pulse Resp BP Pulse Ox 98.4 F 95 16 114/75 97 09/22/16 11:26 09/22/16 11:26 09/22/16 11:26 09/22/16 11:26 09/22/16 11:26 General appearance: Present: cooperative, A&O X 3, pleasant, no acute distress - Head Head exam: Present: atraumatic, normocephalic - Eye Eye exam: Present: PERRL, conjuntiva pink, sclera anicteric Pupils: Present: PERRL - Neck Neck exam general surgery: Present: supple, trachea midline. Absent: lymphadenopathy - Respiratory Respiratory exam: Present: CTAB. Absent: accessory muscle use, rales, rhonchi, wheezes - Cardiovascular Cardiovascular exam: Present: irregular rhythm, +S1, +S2. Absent: diastolic murmur, gallop, rubs, systolic murmur - GI/Abdominal GI/Abdominal exam: Present: normal bowel sounds, soft, no peritoneal signs. Absent: distended, tenderness - Extremities Exam Extremities exam: Present: warm, radial pulses palpable and symetrical. Absent : calf tenderness, cyanotic, pedal edema - Neurological Exam Neurological exam: Present: CN II-XII intact, oriented X3, no focal deficits. Absent: pronater drift, facial droop, speech deficit - Skin Skin exam: Present: dry, intact Internal Medicine: Result - Labs CBC & Chem 7: 09/22/16 02:40 09/22/16 02:40 Labs: Short CBC 09/22/16 Range/Units 02:40 WBC 8.4 (4.3-11.1) K/mcL Hgb 13.0 (11.5-15.4) g/dL Hct 39.0 (35.3-44.9) % Plt Count 158 (140-400) K/mcL Neutrophils # 4.6 (1.6-8.9) K/mcL BMP 09/22/16 02:40 Sodium 136 Potassium 4.3 Chloride 104 Carbon Dioxide 25 BUN 27 H Creatinine 1.06 Glucose 120 H Calcium 9.1 Cardiac Enzymes 09/21/16 09/22/16 Range/Units 20:21 02:40 Troponin I 0.01 0.01 (0-0.03) ng/mL Consult Discharge Plan - Plan Referrals: Daniel Ceja MD [Primary Care Provider] - 10/03/16 1:30 pm <Jaydon Maxwell - Last Filed: 09/22/16 15:02> Date of Encounter: 09/22/16 - Constitutional Vitals: Temp Pulse Resp BP Pulse Ox 98.4 F 95 16 114/75 97 09/22/16 11:26 09/22/16 11:26 09/22/16 11:26 09/22/16 11:26 09/22/16 11:26 Internal Medicine: Result - Labs CBC & Chem 7: 09/22/16 02:40 09/22/16 02:40 Labs: Short CBC 09/22/16 Range/Units 02:40 WBC 8.4 (4.3-11.1) K/mcL Hgb 13.0 (11.5-15.4) g/dL Hct 39.0 (35.3-44.9) % Plt Count 158 (140-400) K/mcL Neutrophils # 4.6 (1.6-8.9) K/mcL BMP 09/22/16 02:40 Sodium 136 Potassium 4.3 Chloride 104 Carbon Dioxide 25 BUN 27 H Creatinine 1.06 Glucose 120 H Calcium 9.1 Cardiac Enzymes 09/21/16 09/22/16 Range/Units 20:21 02:40 Troponin I 0.01 0.01 (0-0.03) ng/mL - Attending Attestation I saw and examined pt. I have discussed with Resident Dr Romero regarding pt's management plan. I agree with the documentation. Pt has A Fib with RVR which is because she missed cardizem when BP is at lower side. Will decreased lisinopril dose from 20mg bid to 20mg qd to have more space for cardizem use. Close monitor pt overnight, plan to d/c home tomorrow.
[2016-09-23 06:46] VITALS: BP 137/82
[2016-09-23] MEDS: hydroCHLOROthiazide 25 MG TABLET PO SCH (08:04)
[2016-09-23] MEDS: *HR* Dabigatran 75 MG CAPSULE PO SCH (08:04)
[2016-09-23] MEDS: Metoprolol XL (24 HR) Succ 25 MG TAB.ER.24H PO SCH (08:04)
[2016-09-23] MEDS: Loratadine 10 MG TABLET PO SCH (08:04)
[2016-09-23] MEDS: Aspirin Enteric Coated 81 MG Tablet PO SCH (08:05)
[2016-09-23] MEDS: Diltiazem CD (24hr) 180 MG CAPSULE PO SCH (08:05)
[2016-09-23] MEDS: Budesonide/Formoterol 160/4.5 MDI IH SCH (08:52)
[2016-09-23] MEDS ORDERED: Lisinopril 20 MG TABLET PO SCH (09:00)
--- NOTE | 2016-09-23 09:47 | Discharge Summary ---
<Yeyo Romero - Last Filed: 09/23/16 09:45> Date of Encounter: 09/23/16 Time of Encounter: 09:45 - Discharge Diagnosis (1) Atrial fibrillation with RVR Priority: Primary Status: Acute (2) HTN (hypertension) Priority: Secondary Status: Chronic Qualifiers: Hypertension type: essential hypertension Qualified Code(s): I10 - Essential (primary) hypertension (3) DVT prophylaxis Priority: Secondary Status: Acute - Discharge Medications Home Medications: Albuterol Sulfate [Ventolin Hfa] 2 puff IH Q4H PRN 09/19/16 [History] Aspirin Enteric Coated [Aspirin EC] 81 mg PO DAILY 09/19/16 [History] Besifloxacin HCl [Besivance] 1 drop OP TID 09/19/16 [History] Bromfenac Sodium [Prolensa] 1 drop OP TID 09/19/16 [History] Budesonide/Formoterol 160/4.5 [Symbicort 160/4.5] 2 puff IH BIDR 09/19/16 [ History] Calcium Carbonate/Vitamin D3 [Oyster Shell Calcium-Vit D Tab] 1 tab PO BID 09/19 [History] Cetirizine HCl [All Day Allergy] 10 mg PO DAILY 09/19/16 [History] Dabigatran [Pradaxa] 75 mg PO BID #60 capsule 09/19/16 [Rx] Difluprednate [Durezol] 1 drop OP TID 09/19/16 [History] Diltiazem CD (24hr) [Cardizem CD] 180 mg PO DAILY #30 cap.er.24h 09/19/16 [Rx] Metoprolol Succinate 25 mg PO DAILY #30 tab.er.24h 09/19/16 [Rx] Montelukast [Singulair] 10 mg PO DAILY 09/19/16 [History] [place]-3S/Dha/Epa/Fish Oil [Fish Oil [place]-3 Softgel] 1,000 mg PO DAILY 09/19/16 [History] hydroCHLOROthiazide [Hydrochlorothiazide] 25 mg PO DAILY 09/19/16 [History] Lisinopril [Zestril] 20 mg PO DAILY #0 09/23/16 [Rx] Allergies/Adverse Reactions: Allergies No Known Allergies Allergy (Verified 09/19/16 00:55) Date of admission: 09/21/16 17:03 Primary care physician: Daniel Ceja MD Consults: 09/21/16 19:51 Consult for Pharmacy Education [CONS] Routine Reason for Consult: Patient admitted twice in the last week due to confusion on taking her medications and ending up in afib with RVR Call Completed: No Discharging clinician: Yeyo Romero Anticipated date of discharge: 09/23/16 - Patient Status Disposition: Home, Self-Care Condition: Good Functional capacity at discharge: uses cane/walker (Fall precaution) Overall status at discharge: patient is progressing back to baseline - Discharge Instructions Instructions: Atrial Fibrillation (DC) Follow Up With: Daniel Ceja MD [Primary Care Provider] - 10/03/16 1:30 pm (Follow-up for hospital discharge follow-up) Rosa Isela Bhagat DO [Partnered Physician] - (Follow-up in a week for history of atrial fibrillation, Audio/Video Technician will call to set up an appointment.) - Diet and Activity Activity: resume usual activities as tolerated Diet: low fat, low cholesterol (Cardiac) Hospital course: Ms. Mcfarlane is a 86 year old female with a history of atrial fibrillation on Pradaxa for chronic anticoagulation therapy and hypertension who presented to ER with chief complaint of tachycardia. Patient was discharged from this hospital 4 days ago for atrial fibrillation with rapid ventricular response, at home she was taking AV cathy blocking agent on/off based on heart rate and blood pressure and did not take it daily, patient was instructed to take medications daily without interruption, if she notices low heart rate and blood pressure patient was instructed to tell her PCP or customer service representative for further advice, patient showed understanding. During this hospital stay patient was on home dosage of calcium channel new and beta new and heart rate and blood pressures have been stable. Therefore patient will be discharged home today in stable condition with close follow-up with her primary care physician and primary customer service representative. - Time Spent with Patient Total time spent providing and/or coordinating discharge services: - Constitutional Vitals: Temp Pulse Resp BP Pulse Ox 97.8 F 86 18 137/82 96 09/23/16 06:42 09/23/16 06:42 09/23/16 08:53 09/23/16 06:42 09/23/16 08:53 General appearance: Present: cooperative, A&O X 3, pleasant, no acute distress - Head Head exam: Present: atraumatic, normocephalic - Eye Eye exam: Present: PERRL, conjuntiva pink, sclera anicteric Pupils: Present: PERRL - Neck Neck exam general surgery: Present: supple, trachea midline. Absent: lymphadenopathy - Respiratory Respiratory exam: Present: CTAB. Absent: accessory muscle use, rales, rhonchi, wheezes - Cardiovascular Cardiovascular exam: Present: irregular rhythm, +S1, +S2. Absent: diastolic murmur, gallop, rubs, systolic murmur - GI/Abdominal GI/Abdominal exam: Present: normal bowel sounds, soft, no peritoneal signs. Absent: distended, tenderness - Extremities Exam Extremities exam: Present: warm, radial pulses palpable and symetrical. Absent : calf tenderness, cyanotic, pedal edema - Neurological Exam Neurological exam: Present: CN II-XII intact, oriented X3, no focal deficits. Absent: pronater drift, facial droop, speech deficit - Skin Skin exam: Present: dry, intact <Jaydon Maxwell - Last Filed: 09/23/16 16:33> Date of Encounter: 09/23/16 Date of admission: 09/21/16 17:03 Primary care physician: Daniel Ceja MD Consults: 09/21/16 19:51 Consult for Pharmacy Education [CONS] Routine Reason for Consult: Patient admitted twice in the last week due to confusion on taking her medications and ending up in afib with RVR Call Completed: No Hospital course: Ms. Mcfarlane is a 86 year old female - Time Spent with Patient Total time spent providing and/or coordinating discharge services: - Constitutional Vitals: Temp Pulse Resp BP Pulse Ox 97.8 F 86 18 137/82 96 09/23/16 06:42 09/23/16 06:42 09/23/16 08:53 09/23/16 06:42 09/23/16 08:53 - Attending Attestation I saw and examined pt. I have discussed with Resident Dr Romero regarding pt's management plan. I agree with the documentation. Pt is stable, HR is well controlled. Stable to discharge home.
--- NOTE | 2016-09-23 12:27 | Electrocardiograph Report ---
[address] [address] Test Date: 2016-09-21 Pat Name: Sydni Mcfarlane Department: 102 Room: 2NE16 Gender: F [employer] Tender: Claudia : 1930 Requested By: Denis Franklin Order Number: [id number] Reading MD: Contreras Salinas Measurements Intervals [place] Rate: 162 P: [place]: 0 QRS: 8 QRSD: 91 T: 75 QT: 253 QTc: 343 Interpretive Statements ATRIAL FIBRILLATION WITH RAPID VENTRICULAR RESPONSE NONSPECIFIC ST \T\ T-WAVE ABNORMALITY ABNORMAL RHYTHM ECG Electronically Signed On 09-23-2016 12:26:18 EDT by Contreras Salinas
== END 2016-09-23 11:14 | disposition home or self-care (01) ==
LOC: EMEROO 13:29 → 2NENU 13:29
PROVIDERS: ADMIT Nurse Practitioner Acute Care; ATTEND Internal Medicine

== ENCOUNTER 2017-05-02 12:45 | Inpatient (IN) ==
[2017-05-02] MEDS ORDERED: 0.9 % Sodium Chloride 500 ML IVC ONE (13:06)
[2017-05-02] MEDS ORDERED: methylPREDNISolone 125 MG/2 ML VIAL IVP ONE (13:29)
[2017-05-02 13:46] LABS: Basophils # 0.1 K/mcL (0.0-0.2); Basophils % 0.7 %; Eosinophils # 0.3 K/mcL (0.0-0.6); Eosinophils % 3.3 %; Hematocrit 41.1 % (35.3-44.9); Hemoglobin 13.3 g/dL (11.5-15.4); Immature Granulocytes % 0.4 % (0-4); Lymphocytes # 2.2 K/mcL (0.6-4.6); Lymphocytes % 27.2 %; Mean Corpuscular HGB Conc 32.4 g/dL (31.6-35.5); Mean Corpuscular Volume 89.5 fL (83.0-100.0); Mean Platelet Volume 11.2 fL (9.4-12.4); Monocytes # 0.6 K/mcL (0.0-1.3); Monocytes % 6.8 %; Neutrophils # 5.1 K/mcL (1.6-8.9); Platelet Count 164 K/mcL (140-400); Red Blood Count 4.59 M/mcL (3.82-4.97); Red Cell Distribution Width 12.8 % (11.5-14.5); Segmented Neutrophils % 61.6 %
--- NOTE | 2017-05-02 13:50 | Emergency Department Note ---
START Narrative - START START: I examined this patient and my medical decision-making was reviewed with the Resident Physician. I agree with the documented findings, disposition and treatment plan as described except to the extent set forth below. 86 yo F presents to the ER for A. fib with RVR. Patient was sent over by her primary physician. She has been sick for 2 weeks of bronchitis type symptoms. She states they have been to flu swabs on her that have been negative in the past week or so. She denies fevers. She has home nebulizers and inhalers but does not use them much. She denies any chest pain. No lower leg pain or swelling that is new. Patient need to be admitted for A. fib with RVR. She does take blood thinners for her atrial fibrillation. No critical care time.
[2017-05-02 13:51] LABS: INR 1.4; Prothrombin Time 15.5 Seconds (9.4-12.1)
[2017-05-02 14:07] LABS: BUN/Creatinine Ratio 19 (6-26); Blood Urea Nitrogen 16 mg/dL (8-23); Calcium 8.5 mg/dL (8.6-10.3); Carbon Dioxide 27 mEq/L (23-29); Chloride 104 mEq/L (98-107); Glucose 153 mg/dL (70-105); Magnesium 1.8 mg/dL (1.6-2.6); Osmolality,Calculated 288 (280-300); Potassium 3.9 mEq/L (3.5-5.1); Sodium 137 mEq/L (136-145); eGFR For African Americans > 60 (> 60); eGFR For Non-African Americans > 60 (> 60)
[2017-05-02] MEDS: Benzonatate 100 MG CAPSULE PO PRN (14:11)
[2017-05-02 14:13] LABS: Thyroid Stimulating Hormone 1.527 mcIU/mL (0.340-5.600)
--- NOTE | 2017-05-02 14:58 | Emergency Department Note ---
Disposition Clinical Impression: Atrial fibrillation with RVR, Wheezing, Cough Disposition: Admitted As Inpatient Condition: Good Referrals: Daniel Ceja MD [Primary Care Provider] - General Adult HPI - General Chief complaint: ED Recheck/Abnormal Lab/Rx Stated complaint: abnormal EKG Time Seen by Provider: 05/02/17 13:05 Source: patient Limitations: no limitations Nursing Notes Reviewed: Yes Vital Signs Reviewed: Yes - History of Present Illness HPI Narrative: Patient presents today for evaluation of elevated heart rate and abnormal EKG at PCP office. Patient does have a history of atrial fibrillation and is on Permax as well as Cardizem. Patient also has a previous diagnosis of COPD with albuterol inhalers but has not been using them as someone else's told her that she does not have COPD. On exam the patient is comfortable in no acute distress. She does have diffuse wheezing in all lung bruno. She had previously been treated with steroids and doxycycline for bronchitis. Patient states that her symptoms have not been improving and so she would follow-up with her PCP today. Patient has not had fevers or chills. Patient complains of cough with intermittent sputum production. No chest pain or abdominal pain. Pain Scale: 0 - Related Data Home Medications Medication Instructions Recorded Confirmed Aspirin Enteric Coated [Aspirin EC] 81 mg PO DAILY 09/19/16 09/21/16 Budesonide/Formoterol 160/4.5 2 puff IH BIDR 09/19/16 09/21/16 [Symbicort 160/4.5] Calcium Carbonate/Vitamin D3 1 tab PO BID 09/19/16 09/21/16 [Oyster Shell Calcium-Vit D Tab] Cetirizine HCl [All Day Allergy] 10 mg PO DAILY 09/19/16 09/21/16 Montelukast [Singulair] 10 mg PO DAILY 09/19/16 09/21/16 [place]-3S/Dha/Epa/Fish Oil [Fish 1,000 mg PO DAILY 09/19/16 09/21/16 Oil [place]-3 Softgel] hydroCHLOROthiazide 25 mg PO DAILY 09/19/16 09/21/16 [Hydrochlorothiazide] Albuterol Neb [Proventil Neb] 2.5 mg IH AD 05/02/17 05/02/17 Previous Rx's Medication Instructions Recorded Dabigatran [Pradaxa] 75 mg PO BID #60 capsule 09/19/16 Diltiazem CD (24hr) [Cardizem CD] 180 mg PO DAILY #30 cap.er.24h 09/19/16 Metoprolol Succinate 25 mg PO DAILY #30 tab.er.24h 09/19/16 Lisinopril [Zestril] 20 mg PO DAILY #0 09/23/16 Allergies Allergy/AdvReac Type Severity Reaction Status Date / Time No Known Allergies Allergy Verified 05/02/17 12:56 Review of Systems: CONSTITUTIONAL: No weight loss, fever, chills, weakness or fatigue. HEENT: Eyes: No visual changes. Ears, Nose, Throat: No hearing loss, difficulty talking or unable to swallow. SKIN: No rash or itching. CARDIOVASCULAR: Abnormal EKG at PCP office. No chest pain, chest pressure or chest discomfort. No palpitations or edema. RESPIRATORY: Cough with intermittent sputum production. GASTROINTESTINAL: No anorexia, nausea, vomiting or diarrhea. No abdominal pain or blood. GENITOURINARY: No burning on urination or hematuria. NEUROLOGICAL: No headache, dizziness, syncope, paralysis, ataxia, numbness or tingling in the extremities. No change in bowel or bladder control. MUSCULOSKELETAL: No muscle pain, back pain, joint pain or stiffness. Past Medical History - Past Medical History Medical history: Reports: atrial fibrillation, cancer, hypertension, TIA, other Surgical history: Reports: non-contributory Psychiatric history: Reports: no psych history - Social History Smoking Status: Never smoker Smokeless Tobacco Status: No Alcohol use: Reports: none Drug use: Reports: none Physical Exam General: Well appearing, nontoxic, no acute distress Head: Normocephalic Atraumatic Eyes: PERRL, EOMI ENT: Airway patent, no stridor Neck: supple, no meningismus Chest: Diffuse wheezing bilaterally Cardiac: Irregular rhythm Abdomen: soft, nontender, nondistended; no guarding, rebound, or tenderness to percussion Musculoskeletal: Calves symmetric, nontender, no palpable cord Skin: No rash, normal skin tone Neuro: Alert and Oriented to person, place, and time; No focal deficit, CN 2-12 symmetric and intact - General Limitations: no limitations General appearance: alert, in no apparent distress Course - Reevaluation(s) Reevaluation #1: Patient received Cardizem bolus as well as Cardizem drip. Patient received a 500 mL bolus of fluid and her heart rate improved appropriately. The patient has no complaints at this time. Steroids were given for likely COPD exacerbation and wheezing. Albuterol not initially given secondary to abnormal heart rate. - Consultations Consultation #1: Discussed with hospitalist, Dr. Cameron, pt accepted for admission. Vital Signs Temperature 99.0 F 05/02/17 12:56 Pulse Rate 162 05/02/17 12:56 Respiratory Rate 18 05/02/17 12:56 Blood Pressure 158/104 05/02/17 12:56 O2 Sat by Pulse Oximetry 96 05/02/17 12:56 Temperature 99.0 F 05/02/17 12:56 Pulse Rate 96 05/02/17 14:20 Respiratory Rate 16 05/02/17 14:20 Blood Pressure 148/87 05/02/17 14:20 O2 Sat by Pulse Oximetry 95 05/02/17 14:20 Oxygen Delivery Oxygen Delivery Room Air Medical Decision Making - Lab Data Result diagrams: 05/02/17 13:32 05/02/17 13:32 Lab Results 05/02/17 05/02/17 05/02/17 Range/Units 13:32 13:32 13:32 WBC 8.3 (4.3-11.1) K/mcL RBC 4.59 (3.82-4.97) M/mcL Hgb 13.3 (11.5-15.4) g/dL Hct 41.1 (35.3-44.9) % MCV 89.5 (83.0-100.0) fL MCH 29.0 (28.0-33.3) pg MCHC 32.4 (31.6-35.5) g/dL RDW 12.8 (11.5-14.5) % Plt Count 164 (140-400) K/mcL MPV 11.2 (9.4-12.4) fL Immature Gran % 0.4 (0-4) % Seg Neutrophils % 61.6 % Lymphocytes % 27.2 % Monocytes % 6.8 % Eosinophils % 3.3 % Basophils % 0.7 % Neutrophils # 5.1 (1.6-8.9) K/mcL Lymphocytes # 2.2 (0.6-4.6) K/mcL Monocytes # 0.6 (0.0-1.3) K/mcL Eosinophils # 0.3 (0.0-0.6) K/mcL Basophils # 0.1 (0.0-0.2) K/mcL PT 15.5 H (9.4-12.1) Seconds INR 1.4 APTT 58.0 H (26.0-36.0) Seconds Sodium 137 (136-145) mEq/L Potassium 3.9 (3.5-5.1) mEq/L Chloride 104 (98-107) mEq/L Carbon Dioxide 27 (23-29) mEq/L BUN 16 (8-23) mg/dL Creatinine 0.84 (0.60-1.20) mg/dL Est GFR ( Amer) > 60 (> 60) Est GFR (Non-Af Amer) > 60 (> 60) BUN/Creatinine Ratio 19 (6-26) Glucose 153 H (70-105) mg/dL Calculated Osmolality 288 (280-300) Calcium 8.5 L (8.6-10.3) mg/dL Magnesium 1.8 (1.6-2.6) mg/dL Troponin I (< 0.04) ng/mL TSH 1.527 (0.340-5.600) mcIU/mL 05/02/17 Range/Units 13:32 WBC (4.3-11.1) K/mcL RBC (3.82-4.97) M/mcL Hgb (11.5-15.4) g/dL Hct (35.3-44.9) % MCV (83.0-100.0) fL MCH (28.0-33.3) pg MCHC (31.6-35.5) g/dL RDW (11.5-14.5) % Plt Count (140-400) K/mcL MPV (9.4-12.4) fL Immature Gran % (0-4) % Seg Neutrophils % % Lymphocytes % % Monocytes % % Eosinophils % % Basophils % % Neutrophils # (1.6-8.9) K/mcL Lymphocytes # (0.6-4.6) K/mcL Monocytes # (0.0-1.3) K/mcL Eosinophils # (0.0-0.6) K/mcL Basophils # (0.0-0.2) K/mcL PT (9.4-12.1) Seconds INR APTT (26.0-36.0) Seconds Sodium (136-145) mEq/L Potassium (3.5-5.1) mEq/L Chloride (98-107) mEq/L Carbon Dioxide (23-29) mEq/L BUN (8-23) mg/dL Creatinine (0.60-1.20) mg/dL Est GFR ( Amer) (> 60) Est GFR (Non-Af Amer) (> 60) BUN/Creatinine Ratio (6-26) Glucose (70-105) mg/dL Calculated Osmolality (280-300) Calcium (8.6-10.3) mg/dL Magnesium (1.6-2.6) mg/dL Troponin I < 0.03 (< 0.04) ng/mL TSH (0.340-5.600) mcIU/mL
[2017-05-02] MEDS ORDERED: Naloxone 0.4 MG/ML INJ IVP PRN (16:12)
--- NOTE | 2017-05-02 16:20 | Internal Med History&Physical ---
<Graham Deal - Last Filed: 05/02/17 17:08> Date of Encounter: 05/02/17 Time of Encounter: 16:18 Assessment and Plan (1) Atrial fibrillation with RVR Current visit: Yes Status: Acute Atrial fibrillation with rapid ventricular response without hemodynamic compromise. Suspected etiology; recently diagnosed with bronchitis which likely exacerbated the A-fib RVR Patient has a history of A. fib and is taking Pradaxa. She takes Cardizem 180 QD She has been given a 20 mg Cardizem bolus and placed on IVPB Cardizem drip Lab work unremarkable, potassium 3.9, PT/INR 15.5/1.4 -Continue to closely monitor hemodynamic status -Continuous telemetry, continuous O2 monitoring -Continue Cardizem drip, titrate for heart rate of no less than 85 and not greater than 100 -EKG shows A. fib with RVR rate of 110 -O2 by NC to keep SpO2 greater than 92% -CBCD, BMP (2) Bronchitis Current visit: Yes Status: Acute Patient was treated approximately 2 weeks ago for bronchitis. At that time she was treated with doxycycline, aerosols and oral steroids. He continues to have cough, however she is not hypoxic. She reports that initially the cough was productive last couple days she has had a decrease in sputum. Unclear whether or not this is viral or bacterial etiology however, I suspect it may be viral. The patient is stable on room air and is in no respiratory distress at this time -Culture sputum -Hold off on ATB therapy for now -Stable on room air -Spo2 per NC PRN; titrate to maintain SPO2 greater than 92% -CBC and BMP in the morning -xopenex (3) Cough Current visit: Yes Status: Acute Cough associated with viral bronchitis. Tessalon Perles for cough (4) HTN (hypertension) Current visit: Yes Status: Chronic Stable, continue antihypertensives Qualifiers: Hypertension type: essential hypertension Qualified Code(s): I10 - Essential (primary) hypertension (5) DVT prophylaxis Current visit: Yes Status: Acute On Pradaxa Internal Medicine - H&P: HPI Chief complaint: a-fib RVR Admitted From: Home Plans for Post Hospital Care: Home History of present illness: Ms. Mcfarlane is a 86 year old female with a PMH of a-fib, (on pradaxa), COPD cancer, hypertension and TIA. Patient has a history of atrial fibrillation and is taking Cardizem. Initially, she has a history of COPD. She was treated approximately 2-weeks ago for bronchitis by her PCP. Treatment included doxycycline, steroids and aerosols. During the follow-up with her PCP today she was found to be tachycardic and to have an irregularly irregular rhythm. She was sent to the emergency department and found to be in A. fib with RVR. She complains of a cough with intermittent sputum production, however, she notes that the sputum production has decreased for the last couple of days. She denies any SOB fever, chills, chest pain, sore throat, sinus pressure, ear pressure/pain, PND, abdominal pain, nausea, vomiting, diarrhea. Past Med Surg Social Fam HX - Past Medical History Medical history: atrial fibrillation, cancer, hypertension, TIA, other Psychiatric history: no psych history - Past Surgical History Surgical History: non-contributory - Social History Smoking Status: Never smoker Smokeless Tobacco Status: No Alcohol use: none Drug use: none - Family History Brother Hx Family Cardiac Disorders: Yes ([place]) Internal Medicine - H&P: Meds Aspirin Enteric Coated [Aspirin EC] 81 mg PO DAILY 09/19/16 [History] Budesonide/Formoterol 160/4.5 [Symbicort 160/4.5] 2 puff IH BIDR 09/19/16 [ History] Calcium Carbonate/Vitamin D3 [Oyster Shell Calcium-Vit D Tab] 1 tab PO BID 09/19 [History] Cetirizine HCl [All Day Allergy] 10 mg PO DAILY 09/19/16 [History] Dabigatran [Pradaxa] 75 mg PO BID #60 capsule 09/19/16 [Rx] Diltiazem CD (24hr) [Cardizem CD] 180 mg PO DAILY #30 cap.er.24h 09/19/16 [Rx] Metoprolol Succinate 25 mg PO DAILY #30 tab.er.24h 09/19/16 [Rx] Montelukast [Singulair] 10 mg PO DAILY 09/19/16 [History] [place]-3S/Dha/Epa/Fish Oil [Fish Oil [place]-3 Softgel] 1,000 mg PO DAILY 09/19/16 [History] hydroCHLOROthiazide [Hydrochlorothiazide] 25 mg PO DAILY 06/13/17 [History] Lisinopril [Zestril] 20 mg PO DAILY #0 09/23/16 [Rx] Albuterol Neb [Proventil Neb] 2.5 mg IH AD 05/02/17 [History] 3 Allergy/AdvReac Type Severity Reaction Status Date / Time No Known Allergies Allergy Verified 05/02/17 12:56 All Systems PM: A 10-system review of systems was performed and is negative for pertinent findings except as documented above in the HPI. - Constitutional Constitutional: no chills, no fever(s), no night sweats - EENT Eyes: no change in vision, no discharge, no pain, no photophobia Ears: no ear discharge, no ear pain, no tinnitus Nose, mouth and throat: no dysphagia, no nasal discharge, no neck pain, no sore throat - Cardiovascular Cardiovascular ROS IM: irregular heart rhythm, palpitations, no chest pain, no diaphoresis, no dyspnea, no dyspnea on exertion, no edema, no lightheadedness, no syncope - Respiratory Respiratory: as per HPI, cough, chest congestion, no dyspnea, no dyspnea on exertion, no wheezing, no pain on inspiration, no excessive phlegm production, no change in phlegm color, no pain with cough - Gastrointestinal Gastrointestinal: no abdominal pain, no diarrhea, no hematemesis, no hematochezia, no melena, no nausea, no vomiting - Genitourinary Genitourinary: no change in urinary stream, no dysuria, no flank pain, no hematuria - Musculoskeletal Musculoskeletal ROS IM: no numbness, no tingling - Integumentary Integumentary IM: no rash, no unusual bruising - Neurological Neurological ROS: no confusion, no convulsions, no focal weakness, no numbness, no tingling, no tremor(s) - Hematologic/Lymphatic Hematologic/Lymphatic: no easy bruising - Constitutional Vitals: Temp Pulse Resp BP Pulse Ox 98.3 F 111 14 130/85 95 05/02/17 16:01 05/02/17 16:01 05/02/17 16:01 05/02/17 16:01 05/02/17 16:01 General appearance: Present: cooperative, A&O X 3, no acute distress, answers questions appropriately - Head Head exam: Present: atraumatic, normocephalic - Eye Eye exam: Present: PERRL, conjuntiva pink, sclera anicteric Pupils: Present: PERRL - Neck Neck exam general surgery: Present: supple, trachea midline. Absent: lymphadenopathy - Respiratory Respiratory exam: Present: CTAB. Absent: accessory muscle use, rales, rhonchi, wheezes - Cardiovascular Cardiovascular exam: Present: irregular rhythm, tachycardia. Absent: diastolic murmur, gallop, rubs, systolic murmur - GI/Abdominal GI/Abdominal exam: Present: normal bowel sounds, soft, no peritoneal signs. Absent: distended, tenderness - Extremities Exam Extremities exam: Present: warm, radial pulses palpable and symmetrical. Absent : calf tenderness, cyanotic, pedal edema - Neurological Exam Neurological exam: Present: CN II-XII intact, oriented X3, no focal deficits. Absent: pronater drift, facial droop, speech deficit - Skin Skin exam: Present: dry, intact Internal Med - H&P Results - Labs CBC & Chem 7: 05/02/17 13:32 05/02/17 13:32 - EKG Data -: EKG Interpreted by Myself - EKG Data Prior EKG available for review: yes EKG comments: A- fib with RVR 05/02/17 16:21 - Impressions Impressions Chest X-Ray 05/02/17 13:06 IMPRESSION: No acute cardiac or pulmonary disease. D/ / Les Cuenca MD / Les Cuenca MD Interpreting Provider: Les Cuenca MD <Imtiaz Cameron T - Last Filed: 05/02/17 17:20> Date of Encounter: 05/02/17 Internal Medicine - H&P: HPI History of present illness: Ms. Mcfarlane is a 86 year old female All Systems PM: A 10-system review of systems was performed and is negative for pertinent findings except as documented above in the HPI. - Constitutional Vitals: Temp Pulse Resp BP Pulse Ox 98.3 F 111 14 130/85 95 05/02/17 16:01 05/02/17 16:01 05/02/17 16:01 05/02/17 16:01 05/02/17 16:01 Internal Med - H&P Results - Labs CBC & Chem 7: 05/02/17 13:32 05/02/17 13:32 - Attending Attestation Seen and reviewed, asymptomatic Afib wit RVR, bronchitis on treatment, agree with plan as documented in [employer]UR[employer]IST[employer] documentation
[2017-05-02] MEDS ORDERED: (Calcium Carbonate/Vitamin D3 [Oyster Shell Calcium-V) PO SCH (21:00)
[2017-05-02] MEDS: Levalbuterol Neb 1.25 MG/3 ML IH SCH (21:03)
[2017-05-02] MEDS: *HR* Dabigatran 75 MG CAPSULE PO SCH (21:06)
[2017-05-03 00:25] LABS: Basophils % 0.1 %; Hematocrit 37.7 % (35.3-44.9); Hemoglobin 12.2 g/dL (11.5-15.4); Immature Granulocytes % 0.7 % (0-4); Lymphocytes # 0.6 K/mcL (0.6-4.6); Lymphocytes % 7.9 %; Mean Corpuscular HGB Conc 32.4 g/dL (31.6-35.5); Mean Corpuscular Volume 89.5 fL (83.0-100.0); Monocytes # 0.1 K/mcL (0.0-1.3); Monocytes % 0.7 %; Neutrophils # 6.5 K/mcL (1.6-8.9); Platelet Count 140 K/mcL (140-400); Red Blood Count 4.21 M/mcL (3.82-4.97); Red Cell Distribution Width 12.8 % (11.5-14.5); Segmented Neutrophils % 90.6 %
[2017-05-03] MEDS: Benzonatate 100 MG CAPSULE PO PRN (00:33)
[2017-05-03 00:47] LABS: BUN/Creatinine Ratio 21 (6-26); Blood Urea Nitrogen 20 mg/dL (8-23); Calcium 8.1 mg/dL (8.6-10.3); Carbon Dioxide 24 mEq/L (23-29); Chloride 103 mEq/L (98-107); Glucose 250 mg/dL (70-105); Osmolality,Calculated 291 (280-300); Potassium 4.1 mEq/L (3.5-5.1); Sodium 135 mEq/L (136-145); eGFR For African Americans > 60 (> 60); eGFR For Non-African Americans 57 (> 60)
[2017-05-03] MEDS: Levalbuterol Neb 1.25 MG/3 ML IH SCH ×2 (04:02→10:09)
[2017-05-03] MEDS ORDERED: Diltiazem CD (24hr) 180 MG CAPSULE PO SCH (09:00)
[2017-05-03] MEDS: *HR* Dabigatran 75 MG CAPSULE PO SCH ×2 (09:54→21:09)
[2017-05-03] MEDS: Lisinopril 20 MG TABLET PO SCH (09:55)
[2017-05-03] MEDS: Aspirin Enteric Coated 81 MG Tablet PO SCH (09:55)
[2017-05-03] MEDS: Metoprolol XL (24 HR) Succ 25 MG TAB.ER.24H PO SCH (09:55)
[2017-05-03] MEDS: hydroCHLOROthiazide 25 MG TABLET PO SCH (09:56)
[2017-05-03] MEDS: Loratadine 10 MG TABLET PO SCH (09:57)
[2017-05-03] MEDS ORDERED: Levalbuterol Neb 1.25 MG/3 ML IH PRN (10:30)
[2017-05-03] MEDS: Budesonide/Formoterol 160/4.5 MDI IH SCH ×3 (13:12→23:15)
--- NOTE | 2017-05-03 16:17 | Electrocardiograph Report ---
[address] [place], [place] [address] Test Date: 2017-05-02 Pat Name: Sydni Mcfarlane Department: 102 Room: 2A12 Gender: F [employer]: Viky : 1930 Requested By: Tyrell Ball Order Number: [id number] Reading MD: Francisco Pierce MD Measurements Intervals [place] Rate: 150 P: [place]: 0 QRS: -7 QRSD: 75 T: 78 QT: 262 QTc: 348 Interpretive Statements ATRIAL FIBRILLATION WITH RAPID VENTRICULAR RESPONSE Poor R wave progression Electronically Signed On 05-03-2017 16:15:50 EST by Francisco Pierce MD
--- NOTE | 2017-05-03 18:31 | Internal Med Progress Note ---
Date of Encounter: 05/03/17 Time of Encounter: 08:30 - Assessment and plan (1) Atrial fibrillation with RVR Status: Acute Assessment and plan: Patient has history of atrial fibrillation, presents with rapid ventricular response and palpitations. Started on IV Cardizem drip, plan to wean off. We will increase home dose of Cardizem CD to 240 mg daily. Continue beta new. Continue anticoagulation with Pradaxa. Telemetry monitoring. (2) HTN (hypertension) Status: Chronic Assessment and plan: Blood pressure noted to be fairly controlled, continue home medications. Qualifiers: Hypertension type: essential hypertension Qualified Code(s): I10 - Essential (primary) hypertension (3) Bronchitis Status: Chronic Assessment and plan: Was recently treated with oral antibiotics and steroids, no indication for further antibiotics at this time. Supportive care. (4) COPD (chronic obstructive pulmonary disease) Status: Chronic Assessment and plan: Not in acute exACERBATION; CONTINUE BRIONCHODILATORS, ICS AND SUPPLEMENTAL O2 prn; Qualifiers: COPD type: unspecified COPD Qualified Code(s): J44.9 - Chronic obstructive pulmonary disease, unspecified (5) CKD (chronic kidney disease) Status: Chronic Assessment and plan: serum creatinine at baseline; continue to monitor; Qualifiers: Chronic kidney disease stage: stage 3 (moderate) Qualified Code(s): N18.3 - Chronic kidney disease, stage 3 (moderate) - Subjective Interval history: Reports feeling better. No chest discomfort, palpitations, shortness of breath. Currently on IV Cardizem drip. - Constitutional Vitals: Temp Pulse Resp BP Pulse Ox 98.5 F 88 16 120/67 94 05/03/17 16:29 05/03/17 16:29 05/03/17 16:29 05/03/17 16:29 05/03/17 16:29 General appearance: Present: A&O X 3, no acute distress, answers questions appropriately - Respiratory Respiratory exam: Present: CTAB. Absent: accessory muscle use, rales, rhonchi, wheezes - Cardiovascular Cardiovascular exam: Present: irregular rhythm, +S1, +S2. Absent: diastolic murmur, gallop, rubs, systolic murmur - GI/Abdominal GI/Abdominal exam: Present: normal bowel sounds, soft, no peritoneal signs. Absent: distended, tenderness - Extremities Exam Extremities exam: Present: full ROM, warm, radial pulses palpable and symmetrical. Absent: calf tenderness, cyanotic, pedal edema - Neurological Exam Neurological exam: Present: CN II-XII intact, oriented X3, no focal deficits. Absent: pronater drift, facial droop, speech deficit Internal Medicine: Result - Labs CBC & Chem 7: 05/03/17 00:15 05/03/17 00:15 - ABG Interpretation ABG results: PT/INR, D-dimer PT 15.5 Seconds (9.4-12.1) H 05/02/17 13:32 Consult Discharge Plan - Plan Instructions: Diltiazem (By mouth), Atrial Fibrillation (DC) Referrals: Daniel Ceja MD [Primary Care Provider] - 05/08/17 11:45 am Prescriptions: Diltiazem CD (24hr) [Cardizem CD] 240 mg PO DAILY #30 cap.er.24h
[2017-05-04] MEDS: Budesonide/Formoterol 160/4.5 MDI IH SCH (07:55)
[2017-05-04] MEDS: Lisinopril 20 MG TABLET PO SCH (08:00)
[2017-05-04] MEDS: Aspirin Enteric Coated 81 MG Tablet PO SCH (08:00)
[2017-05-04] MEDS: *HR* Dabigatran 75 MG CAPSULE PO SCH (08:00)
[2017-05-04] MEDS: hydroCHLOROthiazide 25 MG TABLET PO SCH (08:01)
[2017-05-04] MEDS: Loratadine 10 MG TABLET PO SCH (08:01)
[2017-05-04] MEDS: Metoprolol XL (24 HR) Succ 25 MG TAB.ER.24H PO SCH (08:01)
[2017-05-04] MEDS ORDERED: Diltiazem CD (24hr) 240 MG CAPSULE PO SCH (09:00)
[2017-05-04 11:28] VITALS: BP 145/75
--- NOTE | 2017-05-04 12:11 | Discharge Summary ---
Date of Encounter: 05/04/17 Time of Encounter: 10:00 - Discharge Diagnosis (1) Atrial fibrillation with RVR Priority: Primary Status: Acute (2) Bronchitis Priority: Secondary Status: Chronic (3) COPD (chronic obstructive pulmonary disease) Priority: Secondary Status: Chronic Qualifiers: COPD type: unspecified COPD Qualified Code(s): J44.9 - Chronic obstructive pulmonary disease, unspecified (4) CKD (chronic kidney disease) Priority: Secondary Status: Chronic Qualifiers: Chronic kidney disease stage: stage 3 (moderate) Qualified Code(s): N18.3 - Chronic kidney disease, stage 3 (moderate) (5) HTN (hypertension) Priority: Secondary Status: Chronic Qualifiers: Hypertension type: essential hypertension Qualified Code(s): I10 - Essential (primary) hypertension - Discharge Medications Prescriptions: Diltiazem CD (24hr) [Cardizem CD] 240 mg PO DAILY #30 cap.er.24h Home Medications: Aspirin Enteric Coated [Aspirin EC] 81 mg PO DAILY 09/19/16 [History] Budesonide/Formoterol 160/4.5 [Symbicort 160/4.5] 2 puff IH BIDR 09/19/16 [ History] Calcium Carbonate/Vitamin D3 [Oyster Shell Calcium-Vit D Tab] 1 tab PO BID 09/19 [History] Cetirizine HCl [All Day Allergy] 10 mg PO DAILY 09/19/16 [History] Dabigatran [Pradaxa] 75 mg PO BID #60 capsule 09/19/16 [Rx] Metoprolol Succinate 25 mg PO DAILY #30 tab.er.24h 09/19/16 [Rx] Montelukast [Singulair] 10 mg PO DAILY 09/19/16 [History] [place]-3S/Dha/Epa/Fish Oil [Fish Oil [place]-3 Softgel] 1,000 mg PO DAILY 09/19/16 [History] hydroCHLOROthiazide [Hydrochlorothiazide] 25 mg PO DAILY 09/19/16 [History] Lisinopril [Zestril] 20 mg PO DAILY #0 09/23/16 [Rx] Albuterol Neb [Proventil Neb] 2.5 mg IH AD 05/02/17 [History] Diltiazem CD (24hr) [Cardizem CD] 240 mg PO DAILY #30 cap.er.24h 05/04/17 [Rx] Allergies/Adverse Reactions: 3 Allergy/AdvReac Type Severity Reaction Status Date / Time No Known Allergies Allergy Verified 05/02/17 12:56 Date of admission: 05/03/17 10:06 Primary care physician: Daniel Ceja MD Discharging clinician: Jennifer Lynch Anticipated date of discharge: 05/04/17 - Patient Status Disposition: Home Health Service Condition: Good Functional capacity at discharge: independent ambulation Overall status at discharge: patient is progressing back to baseline - Discharge Instructions Instructions: Diltiazem (By mouth), Atrial Fibrillation (DC) Follow Up With: Daniel Ceja MD [Primary Care Provider] - 05/08/17 11:45 am - Diet and Activity Activity: resume usual activities as tolerated Diet: low fat, low cholesterol, low salt diet Hospital course: Ms. Mcfarlane is a 86 year old female with history of atrial fibrillation, who was admitted with tachycardia. Patient presented to primary care provider's office for symptoms of bronchitis, where she was noted to have atrial fibrillation with rapid ventricular response and referred to the emergency room. She was started on IV Cardizem drip with subsequent improvement in heart rate. Her home dose of Cardizem CD was increased to 240 mg daily. Anticoagulation with Pradaxa was continued. Patient is currently medically stable for discharge, with outpatient f/up. - Time Spent with Patient Total time spent providing and/or coordinating discharge services: Greater than 30 minutes (40 min) - Constitutional Vitals: Temp Pulse Resp BP Pulse Ox 98.4 F 102 22 145/75 95 05/04/17 11:25 05/04/17 11:25 05/04/17 11:25 05/04/17 11:25 05/04/17 11:25 General appearance: Present: A&O X 3, no acute distress, answers questions appropriately - Cardiovascular Cardiovascular exam: Present: irregular rhythm, +S1, +S2. Absent: diastolic murmur, gallop, rubs, systolic murmur
--- NOTE | 2017-05-04 12:13 | Physician Discharge Referral ---
Home Health/Hosp Referral Info Transfer to: Home Health Attending Provider: Jennifer Lynch Provider in Charge Post Discharge: PCP - Diagnosis (1) Atrial fibrillation with RVR Priority: Primary Status: Acute (2) Bronchitis Priority: Primary Status: Chronic (3) COPD (chronic obstructive pulmonary disease) Priority: Secondary Status: Chronic (4) CKD (chronic kidney disease) Priority: Secondary Status: Chronic (5) HTN (hypertension) Priority: Secondary Status: Chronic - Respiratory Orders Smoking Cessation: Smoking cessation has been advised. For more information, call the [place] Tobacco Quit Line at 2-084-DREA-NOW. - Diet/Nutrition Diet/Nutrition Orders: Renal, Cardiac - Activity Activity Orders: Ambulate - Services Needed Following services are medically necessary services: Home Health Aide - Transfer Medications Prescriptions: Diltiazem CD (24hr) [Cardizem CD] 240 mg PO DAILY #30 cap.er.24h Home Medications: Aspirin Enteric Coated [Aspirin EC] 81 mg PO DAILY 09/19/16 [History] Budesonide/Formoterol 160/4.5 [Symbicort 160/4.5] 2 puff IH BIDR 09/19/16 [ History] Calcium Carbonate/Vitamin D3 [Oyster Shell Calcium-Vit D Tab] 1 tab PO BID 09/19 [History] Cetirizine HCl [All Day Allergy] 10 mg PO DAILY 09/19/16 [History] Dabigatran [Pradaxa] 75 mg PO BID #60 capsule 09/19/16 [Rx] Metoprolol Succinate 25 mg PO DAILY #30 tab.er.24h 09/19/16 [Rx] Montelukast [Singulair] 10 mg PO DAILY 09/19/16 [History] [place]-3S/Dha/Epa/Fish Oil [Fish Oil [place]-3 Softgel] 1,000 mg PO DAILY 09/19/16 [History] hydroCHLOROthiazide [Hydrochlorothiazide] 25 mg PO DAILY 09/19/16 [History] Lisinopril [Zestril] 20 mg PO DAILY #0 09/23/16 [Rx] Albuterol Neb [Proventil Neb] 2.5 mg IH AD 05/02/17 [History] Diltiazem CD (24hr) [Cardizem CD] 240 mg PO DAILY #30 cap.er.24h 05/04/17 [Rx] Allergies/Adverse Reactions: 3 Allergy/AdvReac Type Severity Reaction Status Date / Time No Known Allergies Allergy Verified 05/02/17 12:56 Certification: Further, I certify that my clinical findings support that this patient is homebound (i.e. absences from home require considerable and taxing effort and are for medical reasons or nondenominational services or infrequently or short duration when for other reasons) because: Homebound Reason: Patient requires assistance of a person or device to safely leave home Attestation: My signature below is to certify that this patient is under my care and that I, or nurse practitioner, or a physician's bus assistant working with me, has a face-to -face encounter with this patient.
== END 2017-05-04 13:27 | disposition home health service (06) | DRG 309 ==
LOC: EMEROO 12:45 → 2ANU 12:45 → SUATTDRO 15:17 → 2ANU 15:48
PROVIDERS: ADMIT Internal Medicine; ATTEND Internal Medicine

== ENCOUNTER 2018-02-23 18:27 | Observation (INO) ==
[2018-02-23] MEDS ORDERED: *HR* Metoprolol 5 MG/5 ML VIAL IVP ONE (19:06)
--- NOTE | 2018-02-23 19:06 | Emergency Department Note ---
Disposition Clinical Impression: Atrial fibrillation with RVR Disposition: Admitted As Inpatient Referrals: NONE,PCP [Primary Care Provider] - General Adult HPI - General Chief complaint: ED General Medical Stated complaint: Evevated HR Time Seen by Provider: 02/23/18 18:40 Source: patient Limitations: no limitations Nursing Notes Reviewed: Yes Vital Signs Reviewed: Yes - History of Present Illness HPI Narrative: Attestation note ED attending note I examined this patient and my medical decision-making was reviewed with the emergency medicine resident Dr. Nitish Turpin. I agree with the documented findings, disposition and treatment plan as described except to the extent set forth below. Briefly: 87-year-old female known history of atrial fibrillation on per DACs and other medications presents with the palpitations and lightheadedness fatigue. EKG shows atrial fibrillation with rapid ventricular response about 125 bpm. Patient be given IV diltiazem screening labs chest x-ray troponin at admission. Providing 30 minutes critical care service this patient. Admission disposition pending Pain Scale: 0 - Related Data Home Medications Medication Instructions Recorded Confirmed Aspirin Enteric Coated [Aspirin EC] 81 mg PO DAILY 09/19/16 05/02/17 Budesonide/Formoterol 160/4.5 2 puff IH BIDR 09/19/16 05/02/17 [Symbicort 160/4.5] Calcium Carbonate/Vitamin D3 1 tab PO BID 09/19/16 05/02/17 [Oyster Shell Calcium-Vit D Tab] Cetirizine HCl [All Day Allergy] 10 mg PO DAILY 09/19/16 05/02/17 Montelukast [Singulair] 10 mg PO DAILY 09/19/16 05/02/17 [place]-3S/Dha/Epa/Fish Oil [Fish 1,000 mg PO DAILY 09/19/16 05/02/17 Oil [place]-3 Softgel] hydroCHLOROthiazide 25 mg PO DAILY 09/19/16 05/02/17 [Hydrochlorothiazide] Albuterol Neb [Proventil Neb] 2.5 mg IH AD 05/02/17 05/02/17 Previous Rx's Medication Instructions Recorded Dabigatran [Pradaxa] 75 mg PO BID #60 capsule 09/19/16 Metoprolol Succinate 25 mg PO DAILY #30 tab.er.24h 09/19/16 Lisinopril [Zestril] 20 mg PO DAILY #0 09/23/16 Diltiazem CD (24hr) [Cardizem CD] 240 mg PO DAILY #30 cap.er.24h 05/04/17 Allergies Allergy/AdvReac Type Severity Reaction Status Date / Time No Known Allergies Allergy Verified 05/02/17 12:56 Past Medical History - Past Medical History Medical history: Reports: atrial fibrillation, cancer, hypertension, TIA, other Surgical history: Reports: non-contributory Psychiatric history: Reports: no psych history - Social History Smoking Status: Never smoker Smokeless Tobacco Status: No Alcohol use: Reports: none Drug use: Reports: none Physical Exam - General Limitations: no limitations General appearance: alert Course Vital Signs Temperature 97.9 F 02/23/18 18:33 Pulse Rate 138 02/23/18 18:33 Respiratory Rate 20 02/23/18 18:33 Blood Pressure 196/90 02/23/18 18:33 O2 Sat by Pulse Oximetry 97 02/23/18 18:33 Temperature 97.9 F 02/23/18 18:44 Pulse Rate 138 02/23/18 18:44 Respiratory Rate 20 02/23/18 18:44 Blood Pressure 196/90 02/23/18 18:44 O2 Sat by Pulse Oximetry 98 02/23/18 18:52 Oxygen Delivery Oxygen Delivery Room Air
[2018-02-23 19:11] LABS: Basophils # 0.1 K/mcL (0.0-0.2); Basophils % 0.5 %; Eosinophils # 0.4 K/mcL (0.0-0.6); Eosinophils % 3.4 %; Hematocrit 41.4 % (35.3-44.9); Hemoglobin 13.7 g/dL (11.5-15.4); Immature Granulocytes % 0.2 % (0-4); Lymphocytes # 4.5 K/mcL (0.6-4.6); Lymphocytes % 41.5 %; Mean Corpuscular HGB Conc 33.1 g/dL (31.6-35.5); Mean Corpuscular Hemoglobin 29.5 pg (28.0-33.3); Mean Corpuscular Volume 89.2 fL (83.0-100.0); Mean Platelet Volume 11.1 fL (9.4-12.4); Monocytes # 0.9 K/mcL (0.0-1.3); Monocytes % 8.5 %; Platelet Count 169 K/mcL (140-400); Red Blood Count 4.64 M/mcL (3.82-4.97); Red Cell Distribution Width 12.6 % (11.5-14.5); Segmented Neutrophils % 45.9 %
--- NOTE | 2018-02-23 19:29 | Emergency Department Note ---
Disposition Clinical Impression: Atrial fibrillation with RVR Disposition: Admitted As Inpatient Condition: Fair Time of Disposition: 20:08 General Adult HPI - General Chief complaint: ED General Medical Stated complaint: Evevated HR Time Seen by Provider: 02/23/18 18:40 Source: patient Mode of arrival: ambulatory Limitations: no limitations Nursing Notes Reviewed: Yes Vital Signs Reviewed: Yes - History of Present Illness HPI Narrative: Patient is an 87-year-old female with a past medical history of hypertension and atrial fibrillation presents to the emergency department for evaluation of palpitations and a high heart rate that started 1 hour prior to arrival. Patient states that she noticed she was having palpitations and possibly that her blood pressure was high and she checked her blood pressure which was not high however her heart rate was in the 130s. States that she is currently on to rate control medications including metoprolol and Cardizem. States that this h as happened in the past but has not happened since April 2017. She denies any fevers, chest pain, dyspnea, nausea, vomiting, cold symptoms, urinary symptoms or diarrhea. States that she is compliant with her medications. She grabbed bring her medication list is unsure why her dosages are for her medications. Pain Scale: 0 - Related Data Home Medications Medication Instructions Recorded Confirmed Aspirin Enteric Coated [Aspirin EC] 81 mg PO DAILY 09/19/16 05/02/17 Budesonide/Formoterol 160/4.5 2 puff IH BIDR 09/19/16 05/02/17 [Symbicort 160/4.5] Calcium Carbonate/Vitamin D3 1 tab PO BID 09/19/16 05/02/17 [Oyster Shell Calcium-Vit D Tab] Cetirizine HCl [All Day Allergy] 10 mg PO DAILY 09/19/16 05/02/17 Montelukast [Singulair] 10 mg PO DAILY 09/19/16 05/02/17 [place]-3S/Dha/Epa/Fish Oil [Fish 1,000 mg PO DAILY 09/19/16 05/02/17 Oil [place]-3 Softgel] hydroCHLOROthiazide 25 mg PO DAILY 09/19/16 05/02/17 [Hydrochlorothiazide] Albuterol Neb [Proventil Neb] 2.5 mg IH AD 05/02/17 05/02/17 Previous Rx's Medication Instructions Recorded Dabigatran [Pradaxa] 75 mg PO BID #60 capsule 09/19/16 Metoprolol Succinate 25 mg PO DAILY #30 tab.er.24h 09/19/16 Lisinopril [Zestril] 20 mg PO DAILY #0 09/23/16 Diltiazem CD (24hr) [Cardizem CD] 240 mg PO DAILY #30 cap.er.24h 05/04/17 Allergies Allergy/AdvReac Type Severity Reaction Status Date / Time No Known Allergies Allergy Verified 05/02/17 12:56 All systems ED: reviewed and negative except as stated. Review of Systems: As Per HPI Constitutional: Denies: fever, chills Cardiovascular: Reports: palpitations. Denies: chest pain, dyspnea on exertion Respiratory: Denies: cough, dyspnea Gastrointestinal: Denies: abdominal pain, nausea, vomiting Genitourinary: Denies: urgency, dysuria Musculoskeletal: Denies: back pain, neck pain Integumentary: Denies: rash Past Medical History - Past Medical History Attestation: Yes The following information was validated with the patient. Medical history: Reports: atrial fibrillation, cancer, hypertension, TIA, other Surgical history: Reports: non-contributory Psychiatric history: Reports: no psych history - Social History Smoking Status: Never smoker Smokeless Tobacco Status: No Alcohol use: Reports: none Drug use: Reports: none Physical Exam CONSTITUTIONAL: Well-appearing; well-nourished; A&O X 3, in no apparent distress. Tachycardic in the 90-130s. Otherwise, vitals are stable. HEAD: Normocephalic; atraumatic EYES: PERRL, no scleral icterus NOSE: The nose is normal in appearance without rhinorrhea NECK: No JVD or distended neck veins RESP: Normal chest excursion with respiration; breath sounds clear and equal bilaterally; no wheezes, rhonchi, or rales CARD: Regular rhythm, without murmurs, rub or gallop ABD: Non-distended; non-tender, soft, without rigidity, rebound or guarding,no pulsatile mass CHEST: No pain with palpation SKIN: Normal for age and race; warm and dry without diaphoresis ; no apparent lesions EXTREMITIES: Pulses are 2 plus and equal times 4 extremities, no peripheral ed andres or calf muscle pain - General Limitations: no limitations General appearance: alert Course Course Narrative: Patient was evaluated for her paroxysmal atrial fibrillation. Patient's CBC and metabolic panel were unremarkable, troponin was negative and EKG mainly showed atrial fibrillation. Patient received 2.5 mg of IV metoprolol and her rate was in the 90s. I discussed the patient's case with the hospitalist on-call he agrees to accept the patient for rate control. Dr. Deleon accepted the patient. Vital Signs Temperature 97.9 F 02/23/18 18:33 Pulse Rate 138 02/23/18 18:33 Respiratory Rate 20 02/23/18 18:33 Blood Pressure 196/90 02/23/18 18:33 O2 Sat by Pulse Oximetry 97 02/23/18 18:33 Temperature 97.9 F 02/23/18 18:44 Pulse Rate 138 02/23/18 18:44 Respiratory Rate 20 02/23/18 18:44 Blood Pressure 196/90 02/23/18 18:44 O2 Sat by Pulse Oximetry 98 02/23/18 18:52 Oxygen Delivery Oxygen Delivery Room Air Medical Decision Making - Medical Records Medical records reviewed: Yes I reviewed the patient's medical records. - Lab Data Lab results reviewed: Yes I reviewed the patient's lab results. Result diagrams: 02/23/18 18:55 02/23/18 18:55 Lab Results 02/23/18 02/23/18 Range/Units 18:55 18:55 WBC 10.9 (4.3-11.1) K/mcL RBC 4.64 (3.82-4.97) M/mcL Hgb 13.7 (11.5-15.4) g/dL Hct 41.4 (35.3-44.9) % MCV 89.2 (83.0-100.0) fL MCH 29.5 (28.0-33.3) pg MCHC 33.1 (31.6-35.5) g/dL RDW 12.6 (11.5-14.5) % Plt Count 169 (140-400) K/mcL MPV 11.1 (9.4-12.4) fL Immature Gran % 0.2 (0-4) % Seg Neutrophils % 45.9 % Lymphocytes % 41.5 % Monocytes % 8.5 % Eosinophils % 3.4 % Basophils % 0.5 % Neutrophils # 5.0 (1.6-8.9) K/mcL Lymphocytes # 4.5 (0.6-4.6) K/mcL Monocytes # 0.9 (0.0-1.3) K/mcL Eosinophils # 0.4 (0.0-0.6) K/mcL Basophils # 0.1 (0.0-0.2) K/mcL Sodium 135 L (136-145) mEq/L Potassium 3.9 (3.5-5.1) mEq/L Chloride 98 (98-107) mEq/L Carbon Dioxide 26 (23-29) mEq/L BUN 26 H (8-23) mg/dL Creatinine 1.07 (0.60-1.20) mg/dL Est GFR ( Amer) 59 L (> 60) Est GFR (Non-Af Amer) 49 L (> 60) BUN/Creatinine Ratio 24 (6-26) Glucose 129 H (70-105) mg/dL Calculated Osmolality 286 (280-300) Calcium 9.7 (8.6-10.3) mg/dL Troponin I < 0.03 (< 0.04) ng/mL TSH 3.391 (0.340-5.600) mcIU/mL - Radiology Data Radiology results reviewed: Yes I reviewed the patient's radiology results. Chest X-Ray 02/23/18 18:49 IMPRESSION: No acute process. D/ / Byron Roberts MD / Byron Roberts MD Interpreting Provider: Byron Roberts MD - EKG Data EKG #1 EKG attestation: Yes I reviewed and interpreted this EKG. EKG results narrative: EKG done at 18:45 shows a's atrial fibrillation with RVR at a rate of 130 bpm.
[2018-02-23 19:32] LABS: BUN/Creatinine Ratio 24 (6-26); Blood Urea Nitrogen 26 mg/dL (8-23); Calcium 9.7 mg/dL (8.6-10.3); Carbon Dioxide 26 mEq/L (23-29); Chloride 98 mEq/L (98-107); Glucose 129 mg/dL (70-105); Osmolality,Calculated 286 (280-300); Potassium 3.9 mEq/L (3.5-5.1); Sodium 135 mEq/L (136-145); eGFR For Non-African Americans 49 (> 60)
[2018-02-23 19:33] LABS: Troponin I < 0.03 ng/mL (< 0.04)
[2018-02-23 19:46] LABS: Thyroid Stimulating Hormone 3.391 mcIU/mL (0.340-5.600)
[2018-02-23] MEDS ORDERED: Potassium Chloride Elixir 20 MEQ/15 ML UDC PO ONE (20:07)
[2018-02-23 20:24] LABS: Magnesium 1.7 mg/dL (1.6-2.6)
--- NOTE | 2018-02-23 21:21 | Internal Med History&Physical ---
<Edd Tyler - Last Filed: 02/23/18 21:55> Date of Encounter: 02/23/18 Time of Encounter: 21:18 Internal Medicine - H&P: HPI Chief complaint: palpitations History of present illness: Trae Mcfarlane is an 87 year old female with a PMH of atrial fibrillation, hypertension, and TIA who presented to [facility] ED on 02/23/18 with a chief complaint of palpitations and tachycardia that started 1 hour prior to arrival. Patient reported noticing having palpitations earlier, and noticed that her heart rate was in the 130s. Patient is currently on metoprolol and Cardizem. She reports similar episode back in April. She reports compliance with her medications. She denied having any other symptoms. Upon arrival to the emergency department, patients vital signs were as follows: Temp 97.9, HR 138, RR 20, BP 196/90, O2 sat 97. Laboratory analysis demonst rated a sodium of 135. CXR showed no acute process. Troponin and TSH were both unremarkable. EKG demonstrated atrial fibrillation with rapid ventricular response, rate 125 bpm. Patient was given IV Lopressor in the ED; rate subsequently decreased to the 90s. Patient was seen and examined at bedside; she states that she is feeling well. She denies having any chest pain, shortness of breath, palpitations, fevers, chills, nausea, vomiting, headache, lightheadedness, or visual changes. She r eports compliance with her home medications. She has no complaints at this time. Past Med Surg Social Fam HX - Past Medical History Medical history: atrial fibrillation, cancer, hypertension, TIA, other Additional medical history: non-small cell carcinoma Psychiatric history: no psych history - Past Surgical History Surgical History: non-contributory Additional surgical history: Recent cataract surgery. - Social History Smoking Status: Never smoker Smokeless Tobacco Status: No Alcohol use: none Drug use: none - Family History Brother Hx Family Cardiac Disorders: Yes (DC) Internal Medicine - H&P: Meds Aspirin Enteric Coated [Aspirin EC] 81 mg PO DAILY 09/19/16 [History] Budesonide/Formoterol 160/4.5 [Symbicort 160/4.5] 2 puff IH BIDR 09/19/16 [History] Calcium Carbonate/Vitamin D3 [Oyster Shell Calcium-Vit D Tab] 1 tab PO BID 09/19/16 [History] Cetirizine HCl [All Day Allergy] 10 mg PO DAILY 09/19/16 [History] Dabigatran [Pradaxa] 75 mg PO BID #60 capsule 09/19/16 [Rx] Metoprolol Succinate 25 mg PO DAILY #30 tab.er.24h 09/19/16 [Rx] Montelukast [Singulair] 10 mg PO DAILY 09/19/16 [History] [place]-3S/Dha/Epa/Fish Oil [Fish Oil [place]-3 Softgel] 1,000 mg PO DAILY 09/19/16 [History] hydroCHLOROthiazide [Hydrochlorothiazide] 25 mg PO DAILY 09/19/16 [History] Lisinopril [Zestril] 20 mg PO DAILY #0 09/23/16 [Rx] Albuterol Neb [Proventil Neb] 2.5 mg IH AD 05/02/17 [History] Diltiazem CD (24hr) [Cardizem CD] 240 mg PO DAILY #30 cap.er.24h 05/04/17 [Rx] Allergy/AdvReac Type Severity Reaction Status Date / Time No Known Allergies Allergy Verified 05/02/17 12:56 All Systems PM: A 10-system review of systems was performed and is negative for pertinent findings except as documented above in the HPI. - Constitutional Constitutional: as per HPI, no chills, no fever(s) - EENT Eyes: as per HPI, no change in vision Nose, mouth and throat: as per HPI, no dysphagia, no nasal discharge - Cardiovascular Cardiovascular ROS IM: as per HPI, irregular heart rhythm, no chest pain, no diaphoresis, no dyspnea, no lightheadedness, no palpitations, no syncope - Respiratory Respiratory: as per HPI, no cough, no dyspnea, no wheezing, no excessive phlegm production - Gastrointestinal Gastrointestinal: as per HPI, no abdominal pain, no nausea, no vomiting - Genitourinary Genitourinary: as per HPI, no change in urinary stream, no dysuria, no flank pain, no hematuria - Musculoskeletal Musculoskeletal ROS IM: as per HPI, no numbness, no tingling - Integumentary Integumentary IM: as per HPI, no rash, no unusual bruising - Neurological Neurological ROS: as per HPI, no confusion, no convulsions, no focal weakness, no numbness, no tingling, no tremor(s) - Hematologic/Lymphatic Hematologic/Lymphatic: as per HPI, no easy bruising - Constitutional Vitals: Temp Pulse Resp BP Pulse Ox 97.9 F 138 14 122/63 98 02/23/18 18:44 02/23/18 18:44 02/23/18 20:33 02/23/18 20:33 02/23/18 18:52 Exam: General: A&O X3, conversant, no acute distress Head: atraumatic, normocephalic Eye: PERRL, EOMI, conjuntiva pink, sclera anicteric Neck: Supple, trachea midline; No lymphadenopathy Respiratory: Prolonged expiratory phase, no wheezes, rales or rhonchi Cardiovascular: Tachycardia, irregular rhythm, no murmurs, rubs, or gallops Abdomen: Soft, nontender Extremities: warm, radial pulses palpable and symmetrical Neurological: CN II-XII intact Psychiatric: Normal affect, normal mood Skin: Dry, intact Internal Med - H&P Results - Labs CBC & Chem 7: 02/23/18 18:55 02/23/18 18:55 Labs: Short CBC 02/23/18 Range/Units 18:55 WBC 10.9 (4.3-11.1) K/mcL Hgb 13.7 (11.5-15.4) g/dL Hct 41.4 (35.3-44.9) % Plt Count 169 (140-400) K/mcL Neutrophils # 5.0 (1.6-8.9) K/mcL BMP 02/23/18 18:55 Sodium 135 L Potassium 3.9 Chloride 98 Carbon Dioxide 26 BUN 26 H Creatinine 1.07 Glucose 129 H Calcium 9.7 Cardiac Enzymes 02/23/18 Range/Units 18:55 Troponin I < 0.03 (< 0.04) ng/mL - Impressions ITS Impressions Chest X-Ray 02/23/18 18:49 IMPRESSION: No acute process. D/ / Byron Roberts MD / Byron Roberts MD Interpreting Provider: Byron Roberts MD - Assessment and plan (1) Atrial fibrillation with RVR Current Visit: Yes Status: Acute Assessment and plan: - Patient initially presented with palpitations and rapid heart rate that started 1 hour prior to arrival - Patient has no signs of hemodynamic compromise - Unknown etiology at this time - Patient has a known history of atrial fibrillation; takes metoprolol and Cardizem for rate control - Reports compliance with her medications - Laboratory analysis was unremarkable; troponin and TSH were within normal limits - EKG demonstrated A. fib with RVR with heart rate in the 120s - Patient was given 2.5 mg IV Lopressor; heart rate decreased to the 90s Plan: - Continuous telemetry and pulse oximetry - Continue Cardizem - Repeat a.m. labs - Closely monitor patients hemodynamic status - Will administer 40 of potassium, 2 g magnesium - One-time dose of metoprolol tartrate 25 mg - Echocardiogram (2) HTN (hypertension) Current Visit: No Status: Chronic Assessment and plan: - Patient has a known history of hypertension - Presented with a blood pressure of 196/90 - Reports compliance with home medications Plan: - Resume home medications Qualifiers: Qualified Code(s): I10 - Essential (primary) hypertension (3) COPD (chronic obstructive pulmonary disease) Current Visit: No Status: Chronic Assessment and plan: Known history of COPD - No shortness of breath this time - Continuous pulse oximetry Qualifiers: Qualified Code(s): J44.9 - Chronic obstructive pulmonary disease, unspecified - Time Spent With Patient Total time spent is greater than 50% in coordination of care (as documented) at patient's floor/unit and/or counseling patient: 25 - 35 minutes <Virgilio Deleon - Last Filed: 02/23/18 22:23> Date of Encounter: 02/23/18 Time of Encounter: 22:18 - Constitutional Constitutional: no chills, no fever(s) - EENT Ears: no ear pain, no tinnitus Nose, mouth and throat: no nasal congestion, no sore throat - Cardiovascular Cardiovascular ROS IM: irregular heart rhythm, no chest pain, no dyspnea, no dyspnea on exertion, no edema, no palpitations, no paroxysmal nocturnal dyspnea - Respiratory Respiratory: no cough, no chest congestion - Gastrointestinal Gastrointestinal: no abdominal pain - Genitourinary Genitourinary: urinary frequency, urinary urgency, no dysuria, no flank pain - Musculoskeletal Musculoskeletal ROS IM: no arthralgias - Integumentary Integumentary IM: no rash - Neurological Neurological ROS: no dizziness, no focal weakness, no frequent falls, no headache(s) - Psychiatric Psychiatric: no anxiety, no depression - Endocrine Endocrine IM: no polydipsia, no polyuria - Allergic/Immunologic Allergic/Immunologic: no GI upset with certain foods - Constitutional Vitals: Temp Pulse Resp BP Pulse Ox 98.1 F 91 18 161/86 93 02/23/18 21:14 02/23/18 21:14 02/23/18 21:14 02/23/18 21:14 02/23/18 21:14 General appearance: Present: A&O X 3, no acute distress - Head Head exam: Present: normal inspection - Eye Eye exam: Present: EOMI, PERRL. Absent: scleral icterus - ENT ENT exam: Present: mucous membranes moist, normal exam - Neck Neck exam general surgery: Present: supple - Respiratory Respiratory exam: Present: CTAB. Absent: chest wall tenderness, rales, rhonchi, tachypnea - Cardiovascular Cardiovascular exam: Present: irregular rhythm, +S1, +S2. Absent: diastolic murmur, systolic murmur - GI/Abdominal GI/Abdominal exam: Present: normal bowel sounds, soft. Absent: tenderness - Extremities Exam Extremities exam: Present: warm, radial pulses palpable and symmetrical. Absent: calf tenderness, pedal edema, tenderness - Back Exam Back exam: Absent: CVA tenderness (L), CVA tenderness (R) - Skin Skin exam: Present: dry, intact, warm. Absent: rash Internal Med - H&P Results - Labs CBC & Chem 7: 02/23/18 18:55 02/23/18 18:55 Labs: Short CBC 02/23/18 Range/Units 18:55 WBC 10.9 (4.3-11.1) K/mcL Hgb 13.7 (11.5-15.4) g/dL Hct 41.4 (35.3-44.9) % Plt Count 169 (140-400) K/mcL Neutrophils # 5.0 (1.6-8.9) K/mcL BMP 02/23/18 18:55 Sodium 135 L Potassium 3.9 Chloride 98 Carbon Dioxide 26 BUN 26 H Creatinine 1.07 Glucose 129 H Calcium 9.7 Cardiac Enzymes 02/23/18 Range/Units 18:55 Troponin I < 0.03 (< 0.04) ng/mL - EKG Data -: EKG Interpreted by Myself - EKG Data Prior EKG available for review: no EKG comments: 02/23/18 22:20 atrial fibrillation w RVR - Impressions ITS Impressions Chest X-Ray 02/23/18 18:49 IMPRESSION: No acute process. D/ / Byron Roberts MD / Byron Roberts MD Interpreting Provider: Byron Roberts MD - Time Spent With Patient Total time spent is greater than 50% in coordination of care (as documented) at patient's floor/unit and/or counseling patient: - Attending Attestation I discussed the patient [place], past medical history, review of systems, lab data, and exam findings with Dr. Tyler. I then saw and examined patient independently as well. Patient is rate controlled now but heart rate runs in the high 90s and remains irregularly irregular. She denies any chest pain, dyspnea, cough, or edema. She does complain of some urinary urgency and frequency which started in the last 24 hours. She denies any dysuria, fevers, or flank pain. We will give her an extra oral Lopressor dose this evening and then resume her home medications tomorrow morning. Additionally, I did ask her nurse to collect a urine sample and ordered an urinalysis and culture. I agree with the workup otherwise as detailed by Dr. Tyler. Other than my comments above and noted exam findings, I agree with Dr. Tyler's assessment and plan.
[2018-02-23] MEDS ORDERED: Naloxone 0.4 MG/ML INJ IVP PRN (21:51)
[2018-02-23 22:37] LABS: Bilirubin,Urine Negative (Negative); Blood,Urine Trace (Negative); Clarity,Urine Clear (Clear); Color,Urine Yellow (Yellow); Glucose,Urine (UA) Normal (Normal); Ketones,Urine Negative (Negative); Leukocyte Esterase,Urine Moderate (Negative); Nitrite,Urine Negative (Negative); Protein,Urine Negative (Neg-Trace); Specific Gravity,Urine < 1.005 (1.010-1.025); Urobilinogen,Urine Normal (Normal)
[2018-02-23 22:39] LABS: Bacteria,Urine Many per hpf (None-Few); Hyaline Casts,Urine None Seen per lpf (None-Few); RBC,Urine 0-3 per hpf (0-3); Squamous Epithelial Cell,Urine None Seen per lpf (None-Few); WBC,Urine 30-50 per hpf (0-3)
[2018-02-24 00:38] LABS: Basophils % 0.5 %; Eosinophils # 0.2 K/mcL (0.0-0.6); Eosinophils % 1.7 %; Hematocrit 37.4 % (35.3-44.9); Hemoglobin 12.3 g/dL (11.5-15.4); Immature Granulocytes % 0.2 % (0-4); Lymphocytes # 2.4 K/mcL (0.6-4.6); Mean Corpuscular HGB Conc 32.9 g/dL (31.6-35.5); Mean Corpuscular Hemoglobin 29.1 pg (28.0-33.3); Mean Corpuscular Volume 88.4 fL (83.0-100.0); Mean Platelet Volume 11.3 fL (9.4-12.4); Monocytes # 0.6 K/mcL (0.0-1.3); Monocytes % 6.3 %; Neutrophils # 5.7 K/mcL (1.6-8.9); Platelet Count 156 K/mcL (140-400); Red Blood Count 4.23 M/mcL (3.82-4.97); Red Cell Distribution Width 12.7 % (11.5-14.5); Segmented Neutrophils % 64.3 %
[2018-02-24 01:00] LABS: Troponin I < 0.03 ng/mL (< 0.04)
[2018-02-24 01:30] LABS: BUN/Creatinine Ratio 23 (6-26); Blood Urea Nitrogen 23 mg/dL (8-23); Calcium 9.3 mg/dL (8.6-10.3); Carbon Dioxide 24 mEq/L (23-29); Chloride 103 mEq/L (98-107); Cholesterol 137 mg/dL (< 200); Glucose 205 mg/dL (70-105); HDL Cholesterol 34 mg/dL (40-59); LDL Cholesterol,Calculated 83 mg/dL (0-99); Magnesium 2.5 mg/dL (1.6-2.6); Osmolality,Calculated 292 (280-300); Phosphorous 3.3 mg/dL (2.7-4.5); Potassium 5.2 mEq/L (3.5-5.1); Sodium 136 mEq/L (136-145); Triglycerides 102 mg/dL (< 150); eGFR For Non-African Americans 52 (> 60)
[2018-02-24] MEDS ORDERED: Albuterol 2.5 MG/3 ML NEBULIZER IH SCH (05:45)
[2018-02-24 07:10] VITALS: BP 130/67
[2018-02-24] MEDS ORDERED: Aspirin Enteric Coated 81 MG Tablet PO SCH (09:00)
[2018-02-24] MEDS ORDERED: Diltiazem CD (24hr) 240 MG CAPSULE PO SCH (09:00)
[2018-02-24] MEDS ORDERED: *HR* Dabigatran 75 MG CAPSULE PO SCH (09:00)
[2018-02-24] MEDS ORDERED: Lisinopril 20 MG TABLET PO SCH (09:00)
[2018-02-24] MEDS ORDERED: FISH OIL 1000 MG PO SCH (09:00)
[2018-02-24] MEDS ORDERED: hydroCHLOROthiazide 25 MG TABLET PO SCH (09:00)
[2018-02-24] MEDS ORDERED: Metoprolol XL (24 HR) Succ 25 MG TAB.ER.24H PO SCH (09:00)
[2018-02-24] MEDS ORDERED: Loratadine 10 MG TABLET PO SCH (09:00)
--- NOTE | 2018-02-24 09:55 | Discharge Summary ---
- NOTES TO OUTPATIENT PROVIDER Notes to Outpatient Provider: Follow-up with your cashier tube room within a week of hospital discharge. Orders not resulted at time of discharge: Pending orders 02/23/18 18:49 ECG 12 lead ECG [ECG] Stat 02/23/18 22:20 Culture,Urine [RM] Stat 02/24/18 09:45 ECG 12 lead ECG [ECG] Routine 02/24/18 15:00 BMP [Basic Metabolic Panel] Routine Date of Encounter: 02/24/18 Time of Encounter: 09:52 - Discharge Diagnosis (1) Atrial fibrillation with RVR Priority: Primary Status: Resolved (2) Urinary tract infection Priority: Secondary Status: Acute Qualifiers: Urinary tract infection type: site unspecified Hematuria presence: without hematuria Qualified Code(s): N39.0 - Urinary tract infection, site not specified (3) COPD (chronic obstructive pulmonary disease) Priority: Secondary Status: Chronic Qualifiers: COPD type: unspecified COPD Qualified Code(s): J44.9 - Chronic obstructive pulmonary disease, unspecified (4) HTN (hypertension) Priority: Secondary Status: Chronic Qualifiers: Qualified Code(s): I10 - Essential (primary) hypertension Hospital course: Ms. Mcfarlane is a 87 year old female PMH of atrial fibrillation, hypertension, and TIA who presented to [facility] on 02/23/18 with a chief complaint of palpitations and tachycardia that started 1 hour prior to arrival. EKG demonstrated atrial fibrillation with rapid ventricular response, rate 125 bpm. Patient was given IV Lopressor in the ED; rate subsequently decreased to the 90s. Serial trops negative. Heat rate remained controlled on PO Cardizem and metoprolol. Patient also found to have a urinary tract infection for which was started on empirical oral antibiotics. Patient is hemodynamically is stable to be discharged home, recommended to follow-up with her cashier tube room within a week of hospital discharge. - Time Spent with Patient Total time spent providing and/or coordinating discharge services: Greater than 30 minutes (45) - Discharge Medications Prescriptions: Nitrofurantoin (BID) [Macrobid] 100 mg PO BID 5 Days #10 capsule Home Medications: Aspirin Enteric Coated [Aspirin EC] 81 mg PO DAILY 09/19/16 [History] Budesonide/Formoterol 160/4.5 [Symbicort 160/4.5] 2 puff IH BIDR 09/19/16 [History] Calcium Carbonate/Vitamin D3 [[place] Calcium-Vit D Tab] 1 tab PO BID 09/19/16 [History] Cetirizine HCl [All Day Allergy] 10 mg PO DAILY 09/19/16 [History] Dabigatran [Pradaxa] 75 mg PO BID #60 capsule 09/19/16 [Rx] Metoprolol Succinate 25 mg PO DAILY #30 tab.er.24h 09/19/16 [Rx] Montelukast [Singulair] 10 mg PO DAILY 09/19/16 [History] [place]-3S/Dha/Epa/Fish Oil [Fish Oil [place]-3 Softgel] 1,000 mg PO DAILY 09/19/16 [History] hydroCHLOROthiazide [Hydrochlorothiazide] 25 mg PO DAILY 09/19/16 [History] Lisinopril [Zestril] 20 mg PO DAILY #0 09/23/16 [Rx] Albuterol Neb [Proventil Neb] 2.5 mg IH AD 05/02/17 [History] Diltiazem CD (24hr) [Cardizem CD] 240 mg PO DAILY #30 cap.er.24h 05/04/17 [Rx] Nitrofurantoin (BID) [Macrobid] 100 mg PO BID 5 Days #10 capsule 02/24/18 [Rx] Allergies/Adverse Reactions: Allergy/AdvReac Type Severity Reaction Status Date / Time No Known Allergies Allergy Verified 05/02/17 12:56 Date of admission: 02/23/18 20:13 Primary care physician: PCP NONE - Constitutional Vitals: Temp Pulse Resp BP Pulse Ox 98.2 F 78 16 130/67 96 02/24/18 07:07 02/24/18 07:07 02/24/18 07:58 02/24/18 07:07 02/24/18 07:58 General appearance: Present: A&O X 3, no acute distress Exam: Vitals: Reviewed. General: Alert and oriented 4. In no acute distress. Skin: Normal color, no rash, no lesions. HEENT: EOM, pupils equal, round and reactive. Cardiovascular: Irregularly regular, Normal S1 & S2, no rubs, murmurs or g allops. Lungs: Clear to auscultation bilaterally, no wheezes or crackles. Abdomen: Soft, non-tender, no rigidity. Extremities: No deformity, no edema or tenderness, no joint swelling or clubbing. Neurological: Normal cognition and motor skills. Rest of the physical exam is non contributory - Patient Status Disposition: Home, Self-Care Condition: Good Functional capacity at discharge: independent ambulation Overall status at discharge: patient is back to baseline - Discharge Instructions Follow Up With: NONE,PCP [Primary Care Provider] - - Diet and Activity Activity: resume usual activities as tolerated Diet: low salt diet
[2018-02-24] MEDS ORDERED: Budesonide/Formoterol 160/4.5 1 PUFF INH IH SCH (10:00)
--- NOTE | 2018-02-24 12:05 | Physician Discharge Referral ---
Home Health/Hosp Referral Info Transfer to: Home Health - Diagnosis (1) Atrial fibrillation with RVR Priority: Primary Status: Resolved (2) Urinary tract infection Priority: Secondary Status: Acute (3) COPD (chronic obstructive pulmonary disease) Priority: Secondary Status: Chronic (4) HTN (hypertension) Priority: Secondary Status: Chronic - Respiratory Orders None Smoking Cessation: Smoking cessation has been advised. For more information, call the [place] Tobacco Quit Line at 7-493-SOEQ-NOW. - Diet/Nutrition Diet/Nutrition Orders: Regular - Activity Activity Orders: Ambulate - Services Needed Following services are medically necessary services: Home Health Aide - Transfer Medications Prescriptions: Nitrofurantoin (BID) [Macrobid] 100 mg PO BID 5 Days #10 capsule Home Medications: Aspirin Enteric Coated [Aspirin EC] 81 mg PO DAILY 09/19/16 [History] Budesonide/Formoterol 160/4.5 [Symbicort 160/4.5] 2 puff IH BIDR 09/19/16 [History] Calcium Carbonate/Vitamin D3 [[place] Calcium-Vit D Tab] 1 tab PO BID 09/19/16 [History] Cetirizine HCl [All Day Allergy] 10 mg PO DAILY 09/19/16 [History] Dabigatran [Pradaxa] 75 mg PO BID #60 capsule 09/19/16 [Rx] Metoprolol Succinate 25 mg PO DAILY #30 tab.er.24h 09/19/16 [Rx] Montelukast [Singulair] 10 mg PO DAILY 09/19/16 [History] [place]-3S/Dha/Epa/Fish Oil [Fish Oil [place]-3 Softgel] 1,000 mg PO DAILY 09/19/16 [History] hydroCHLOROthiazide [Hydrochlorothiazide] 25 mg PO DAILY 09/19/16 [History] Lisinopril [Zestril] 20 mg PO DAILY #0 09/23/16 [Rx] Albuterol Neb [Proventil Neb] 2.5 mg IH AD 05/02/17 [History] Diltiazem CD (24hr) [Cardizem CD] 240 mg PO DAILY #30 cap.er.24h 05/04/17 [Rx] Nitrofurantoin (BID) [Macrobid] 100 mg PO BID 5 Days #10 capsule 02/24/18 [Rx] Allergies/Adverse Reactions: Allergy/AdvReac Type Severity Reaction Status Date / Time No Known Allergies Allergy Verified 05/02/17 12:56 Certification: Further, I certify that my clinical findings support that this patient is homebound (i.e. absences from home require considerable and taxing effort and are for medical reasons or congregation services or infrequently or short duration when for other reasons) because: Homebound Reason: Patient requires assistance of a person or device to safely leave home Attestation: My signature below is to certify that this patient is under my care and that I, or nurse practitioner, or a physician's janitorial assistant working with me, has a [id number] encounter with this patient.
[2018-02-24 14:17] LABS: BUN/Creatinine Ratio 22 (6-26); Blood Urea Nitrogen 22 mg/dL (8-23); Calcium 9.3 mg/dL (8.6-10.3); Carbon Dioxide 29 mEq/L (23-29); Chloride 101 mEq/L (98-107); Glucose 145 mg/dL (70-105); Osmolality,Calculated 290 (280-300); Potassium 4.3 mEq/L (3.5-5.1); Sodium 137 mEq/L (136-145); eGFR For Non-African Americans 52 (> 60)
--- NOTE | 2018-02-26 07:51 | Electrocardiograph Report ---
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
--- NOTE | 2018-02-26 08:14 | Electrocardiograph Report ---
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
== END 2018-02-24 15:25 | disposition home or self-care (01) ==
LOC: EMEROOARM 18:27 → 2NENU 18:27 → SUATTDRO 20:13 → 2NENU 21:11
PROVIDERS: ADMIT Pediatrics; ATTEND Internal Medicine

== ENCOUNTER 2019-02-22 19:29 | Observation (INO) ==
[2019-02-22] MEDS ORDERED: 0.9 % Sodium Chloride 1,000 ML IVC ONE (20:08)
[2019-02-22 20:21] LABS: Basophils # 0.1 K/mcL (0.0-0.2); Basophils % 0.6 %; Eosinophils # 0.4 K/mcL (0.0-0.6); Eosinophils % 3.8 %; Hematocrit 41.1 % (35.3-44.9); Immature Granulocytes % 0.2 % (0-4); Lymphocytes # 3.2 K/mcL (0.6-4.6); Lymphocytes % 30.7 %; Mean Corpuscular HGB Conc 34.1 g/dL (31.6-35.5); Mean Corpuscular Hemoglobin 29.7 pg (28.0-33.3); Mean Corpuscular Volume 87.3 fL (83.0-100.0); Mean Platelet Volume 11.3 fL (9.4-12.4); Monocytes # 0.9 K/mcL (0.0-1.3); Neutrophils # 5.8 K/mcL (1.6-8.9); Platelet Count 195 K/mcL (140-400); Red Blood Count 4.71 M/mcL (3.82-4.97); Red Cell Distribution Width 12.6 % (11.5-14.5); Segmented Neutrophils % 55.7 %; White Blood Count 10.4 K/mcL (4.3-11.1)
[2019-02-22 20:33] LABS: INR 1.3; Prothrombin Time 14.2 Seconds (9.4-12.1)
[2019-02-22 20:36] LABS: Activated Partial Thrombo Time 56.4 Seconds (26.0-36.0)
[2019-02-22 20:42] LABS: BUN/Creatinine Ratio 26 (6-26); Blood Urea Nitrogen 25 mg/dL (8-23); Calcium 9.2 mg/dL (8.6-10.3); Carbon Dioxide 26 mEq/L (23-29); Chloride 96 mEq/L (98-107); Glucose 128 mg/dL (70-105); Osmolality,Calculated 290 (280-300); Potassium 3.7 mEq/L (3.5-5.1); Sodium 137 mEq/L (136-145); eGFR For African Americans > 60 (> 60); eGFR For Non-African Americans 54 (> 60)
[2019-02-22 20:43] LABS: Troponin I < 0.03 ng/mL (< 0.04)
[2019-02-23] MEDS ORDERED: Naloxone 0.4 MG/ML INJ IVP PRN (03:24)
[2019-02-23 04:17] LABS: Hematocrit 37.4 % (35.3-44.9); Mean Corpuscular HGB Conc 34.8 g/dL (31.6-35.5); Mean Corpuscular Hemoglobin 30.7 pg (28.0-33.3); Mean Corpuscular Volume 88.4 fL (83.0-100.0); Mean Platelet Volume 11.6 fL (9.4-12.4); Platelet Count 182 K/mcL (140-400); Red Blood Count 4.23 M/mcL (3.82-4.97); Red Cell Distribution Width 12.9 % (11.5-14.5); White Blood Count 8.9 K/mcL (4.3-11.1)
[2019-02-23 04:34] LABS: BUN/Creatinine Ratio 23 (6-26); Blood Urea Nitrogen 20 mg/dL (8-23); Calcium 8.8 mg/dL (8.6-10.3); Carbon Dioxide 24 mEq/L (23-29); Chloride 104 mEq/L (98-107); Glucose 115 mg/dL (70-105); Osmolality,Calculated 292 (280-300); Potassium 4.2 mEq/L (3.5-5.1); Sodium 139 mEq/L (136-145); eGFR For African Americans > 60 (> 60); eGFR For Non-African Americans > 60 (> 60)
[2019-02-23 06:40] VITALS: BP 136/62
[2019-02-23] MEDS ORDERED: Aspirin Enteric Coated 81 MG Tablet PO SCH (09:00)
[2019-02-23] MEDS ORDERED: *HR* Dabigatran 75 MG CAPSULE PO SCH (09:00)
[2019-02-23] MEDS ORDERED: hydroCHLOROthiazide 25 MG TABLET PO SCH (09:00)
[2019-02-23] MEDS ORDERED: Diltiazem CD (24hr) 240 MG CAPSULE PO SCH (09:00)
[2019-02-23] MEDS ORDERED: Metoprolol XL (24 HR) Succ 25 MG TAB.ER.24H PO SCH (09:30)
== END 2019-02-23 12:27 | disposition home or self-care (01) ==
LOC: 2ANU 19:29 → EMEROOARM 19:29 → 2ANU 23:14
PROVIDERS: ADMIT Family Medicine; ATTEND Family Medicine

== ENCOUNTER 2019-04-10 14:52 | Observation (INO) ==
[2019-04-10 15:57] LABS: Hematocrit 30.2 % (35.3-44.9); Hemoglobin 10.3 g/dL (11.5-15.4); Immature Granulocytes % 0.3 % (0-4); Lymphocytes % 22.9 %; Mean Corpuscular HGB Conc 34.1 g/dL (31.6-35.5); Mean Corpuscular Hemoglobin 30.4 pg (28.0-33.3); Mean Corpuscular Volume 89.1 fL (83.0-100.0); Mean Platelet Volume 11.4 fL (9.4-12.4); Monocytes % 8.3 %; Platelet Count 202 K/mcL (140-400); Red Blood Count 3.39 M/mcL (3.82-4.97); Segmented Neutrophils % 64.9 %; White Blood Count 8.9 K/mcL (4.3-11.1)
[2019-04-10 15:58] LABS: Basophils # 0.1 K/mcL (0.0-0.2); Basophils % 0.9 %; Eosinophils # 0.2 K/mcL (0.0-0.6); Eosinophils % 2.7 %; Monocytes # 0.7 K/mcL (0.0-1.3); Neutrophils # 5.8 K/mcL (1.6-8.9)
[2019-04-10 16:27] LABS: Blood Urea Nitrogen 23 mg/dL (8-23); Calcium 9.2 mg/dL (8.6-10.3); Carbon Dioxide 28 mEq/L (23-29); Chloride 101 mEq/L (98-107); Glucose 150 mg/dL (70-105); Osmolality,Calculated 297 (280-300); Potassium 3.5 mEq/L (3.5-5.1); Sodium 140 mEq/L (136-145)
[2019-04-10 16:31] LABS: BUN/Creatinine Ratio 23 (6-26); eGFR For African Americans > 60 (> 60); eGFR For Non-African Americans 51 (> 60)
[2019-04-10] MEDS ORDERED: Amoxicillin 500 MG CAPSULE PO ONE (17:17)
[2019-04-10] MEDS ORDERED: Ondansetron ODT 4 MG TAB.RAPDIS SL PRN (18:22)
[2019-04-10] MEDS ORDERED: Ondansetron 4 MG/2 ML VIAL IVP PRN (18:22)
[2019-04-10] MEDS ORDERED: Ringers Solution, Lactated 1,000 ML IVC ONE (19:04)
[2019-04-10] MEDS: Pantoprazole 40 MG VIAL IVP SCH (19:53)
[2019-04-11] MEDS: Pantoprazole 40 MG VIAL IVP SCH ×2 (05:55→17:56)
[2019-04-11] MEDS ORDERED: Milk and Molasses Enema 200 ML RC ONE (06:00)
[2019-04-11 06:17] LABS: Basophils % 0.6 %; Eosinophils # 0.4 K/mcL (0.0-0.6); Eosinophils % 5.8 %; Hematocrit 28.8 % (35.3-44.9); Hemoglobin 9.4 g/dL (11.5-15.4); Immature Granulocytes % 0.2 % (0-4); Lymphocytes # 2.2 K/mcL (0.6-4.6); Mean Corpuscular HGB Conc 32.6 g/dL (31.6-35.5); Mean Corpuscular Hemoglobin 29.7 pg (28.0-33.3); Mean Corpuscular Volume 91.1 fL (83.0-100.0); Monocytes # 0.6 K/mcL (0.0-1.3); Monocytes % 9.8 %; Platelet Count 185 K/mcL (140-400); Red Blood Count 3.16 M/mcL (3.82-4.97); Segmented Neutrophils % 48.6 %; White Blood Count 6.3 K/mcL (4.3-11.1)
[2019-04-11 06:44] LABS: BUN/Creatinine Ratio 17 (6-26); Blood Urea Nitrogen 15 mg/dL (8-23); Carbon Dioxide 30 mEq/L (23-29); Chloride 104 mEq/L (98-107); Glucose 115 mg/dL (70-105); Osmolality,Calculated 294 (280-300); Potassium 3.8 mEq/L (3.5-5.1); Sodium 141 mEq/L (136-145); eGFR For African Americans > 60 (> 60); eGFR For Non-African Americans > 60 (> 60)
[2019-04-11 08:06] LABS: INR 1.3; Prothrombin Time 14.4 Seconds (9.4-12.1)
[2019-04-11] MEDS: Metoprolol XL (24 HR) Succ 50 MG TAB.ER.24H PO SCH (09:39)
[2019-04-11] MEDS: Diltiazem CD (24hr) 240 MG CAPSULE PO SCH (09:40)
[2019-04-11] MEDS ORDERED: Albuterol 2.5 MG/3 ML NEBULIZER IH PRN (09:41)
[2019-04-11] MEDS ORDERED: *HR* Propofol 200 MG/20 ML VIAL IVP ONE (10:20)
[2019-04-11] MEDS: Budesonide/Formoterol 160/4.5 1 PUFF INH IH SCH ×2 (11:28→21:13)
[2019-04-11] MEDS ORDERED: Iron Sucrose Complex 400 MG in 0.9 % Sodium Chloride 250 ML IVPB SCH (11:55)
[2019-04-11] MEDS ORDERED: predniSONE 20 MG TABLET PO ONE (20:12)
[2019-04-12] MEDS: Pantoprazole 40 MG VIAL IVP SCH (05:34)
[2019-04-12 06:10] LABS: Hematocrit 32.7 % (35.3-44.9); Hemoglobin 10.8 g/dL (11.5-15.4); Mean Corpuscular Hemoglobin 29.7 pg (28.0-33.3); Mean Corpuscular Volume 89.8 fL (83.0-100.0); Mean Platelet Volume 11.2 fL (9.4-12.4); Platelet Count 222 K/mcL (140-400); Red Blood Count 3.64 M/mcL (3.82-4.97); Red Cell Distribution Width 12.9 % (11.5-14.5)
[2019-04-12] MEDS: Budesonide/Formoterol 160/4.5 1 PUFF INH IH SCH (08:00)
[2019-04-12 08:08] VITALS: BP 151/77
[2019-04-12] MEDS ORDERED: Iron Sucrose Complex 400 MG in 0.9 % Sodium Chloride 250 ML IVPB ONE (08:11)
[2019-04-12] MEDS: Metoprolol XL (24 HR) Succ 50 MG TAB.ER.24H PO SCH (08:40)
[2019-04-12] MEDS: Diltiazem CD (24hr) 240 MG CAPSULE PO SCH (08:41)
== END 2019-04-12 13:05 | disposition home or self-care (01) ==
LOC: 3ANU 14:52 → EMEROOARM 14:52 → 3ANU 18:41
PROVIDERS: ADMIT Family Medicine; ATTEND Family Medicine

== ENCOUNTER 2019-04-23 13:17 | Inpatient (IN) ==
[2019-04-23] MEDS ORDERED: 0.9 % Sodium Chloride 500 ML IVC STA (13:44)
[2019-04-23] MEDS ORDERED: Furosemide 40 MG/4 ML VIAL IVP ONE (14:10)
[2019-04-23 14:18] LABS: Basophils % 0.2 %; Eosinophils # 0.5 K/mcL (0.0-0.6); Eosinophils % 3.5 %; Hematocrit 38.4 % (35.3-44.9); Immature Granulocytes % 0.9 % (0-4); Lymphocytes # 3.9 K/mcL (0.6-4.6); Lymphocytes % 27.6 %; Mean Corpuscular HGB Conc 33.1 g/dL (31.6-35.5); Mean Corpuscular Hemoglobin 30.2 pg (28.0-33.3); Mean Corpuscular Volume 91.4 fL (83.0-100.0); Mean Platelet Volume 10.5 fL (9.4-12.4); Monocytes # 1.1 K/mcL (0.0-1.3); Monocytes % 7.6 %; Neutrophils # 8.5 K/mcL (1.6-8.9); Platelet Count 222 K/mcL (140-400); Red Cell Distribution Width 14.8 % (11.5-14.5); Segmented Neutrophils % 60.2 %; White Blood Count 14.1 K/mcL (4.3-11.1)
[2019-04-23 14:33] LABS: Hemoglobin 12.7 g/dL (11.5-15.4)
[2019-04-23 15:52] LABS: Alanine Aminotransferase 32 Units/L (7-52); Albumin 4.2 g/dL (3.5-5.7); Albumin/Globulin Ratio 1.6 (1.1-2.2); Alkaline Phosphatase 58 Units/L (34-104); Aspartate Amino Transferase 18 Units/L (13-39); BUN/Creatinine Ratio 21 (6-26); Bilirubin,Total 0.5 mg/dL (0.3-1.0); Blood Urea Nitrogen 19 mg/dL (8-23); Calcium 9.4 mg/dL (8.6-10.3); Carbon Dioxide 28 mEq/L (23-29); Chloride 101 mEq/L (98-107); Globulin 2.7 g/dL (2.4-3.5); Glucose 106 mg/dL (70-105); Osmolality,Calculated 291 (280-300); Sodium 139 mEq/L (136-145); Total Protein 6.9 g/dL (6.4-8.9); eGFR For African Americans > 60 (> 60); eGFR For Non-African Americans 59 (> 60)
[2019-04-23] MEDS ORDERED: Naloxone 0.4 MG/ML INJ IVP PRN (16:13)
[2019-04-23] MEDS ORDERED: Levalbuterol Neb 0.63 MG/3 ML IH PRN (16:18)
[2019-04-23] MEDS ORDERED: Furosemide 20 MG/2 ML VIAL IVP SCH (17:00)
[2019-04-23 17:09] LABS: INR 1.2; Prothrombin Time 13.6 Seconds (9.4-12.1)
[2019-04-23 17:11] LABS: Activated Partial Thrombo Time 46.1 Seconds (26.0-36.0)
[2019-04-23 17:15] LABS: Magnesium 1.6 mg/dL (1.6-2.6); Phosphorous 2.6 mg/dL (2.7-4.5)
[2019-04-23] MEDS: Metoprolol XL (24 HR) Succ 50 MG TAB.ER.24H PO SCH (17:31)
[2019-04-23] MEDS: Budesonide/Formoterol 160/4.5 1 PUFF INH IH SCH (20:12)
[2019-04-23] MEDS: *HR* Dabigatran 75 MG CAPSULE PO SCH (20:37)
[2019-04-24 01:39] LABS: Basophils % 0.2 %; Eosinophils # 0.4 K/mcL (0.0-0.6); Hematocrit 36.8 % (35.3-44.9); Hemoglobin 11.8 g/dL (11.5-15.4); Immature Granulocytes % 0.6 % (0-4); Lymphocytes # 2.9 K/mcL (0.6-4.6); Lymphocytes % 24.2 %; Mean Corpuscular HGB Conc 32.1 g/dL (31.6-35.5); Mean Corpuscular Hemoglobin 30.6 pg (28.0-33.3); Mean Corpuscular Volume 95.3 fL (83.0-100.0); Mean Platelet Volume 10.4 fL (9.4-12.4); Monocytes % 8.2 %; Neutrophils # 7.6 K/mcL (1.6-8.9); Platelet Count 203 K/mcL (140-400); Red Blood Count 3.86 M/mcL (3.82-4.97); Red Cell Distribution Width 14.8 % (11.5-14.5); Segmented Neutrophils % 63.8 %; White Blood Count 11.9 K/mcL (4.3-11.1)
[2019-04-24 01:59] LABS: Calcium 8.7 mg/dL (8.6-10.3); Potassium 4.3 mEq/L (3.5-5.1)
[2019-04-24] MEDS: Budesonide/Formoterol 160/4.5 1 PUFF INH IH SCH ×2 (07:37→20:10)
[2019-04-24] MEDS ORDERED: Furosemide 20 MG/2 ML VIAL IVP SCH (08:00)
[2019-04-24] MEDS: Metoprolol XL (24 HR) Succ 50 MG TAB.ER.24H PO SCH (08:31)
[2019-04-24] MEDS: Vitamin B Complex/Vit C/Vit E 1 EACH TABLET PO SCH (08:31)
[2019-04-24] MEDS: Diltiazem CD (24hr) 240 MG CAPSULE PO SCH (08:31)
[2019-04-24] MEDS: *HR* Dabigatran 75 MG CAPSULE PO SCH ×2 (08:31→19:49)
[2019-04-24] MEDS ORDERED: OMEGA ACID ETHYL ESTERS PO SCH (09:00)
[2019-04-25 05:47] LABS: Basophils % 0.3 %; Eosinophils # 0.4 K/mcL (0.0-0.6); Eosinophils % 4.1 %; Hematocrit 36.4 % (35.3-44.9); Hemoglobin 11.8 g/dL (11.5-15.4); Immature Granulocytes % 0.5 % (0-4); Lymphocytes # 2.6 K/mcL (0.6-4.6); Lymphocytes % 27.1 %; Mean Corpuscular HGB Conc 32.4 g/dL (31.6-35.5); Mean Corpuscular Volume 92.6 fL (83.0-100.0); Mean Platelet Volume 10.9 fL (9.4-12.4); Monocytes # 0.9 K/mcL (0.0-1.3); Monocytes % 9.1 %; Neutrophils # 5.6 K/mcL (1.6-8.9); Platelet Count 186 K/mcL (140-400); Red Blood Count 3.93 M/mcL (3.82-4.97); Red Cell Distribution Width 14.5 % (11.5-14.5); Segmented Neutrophils % 58.9 %; White Blood Count 9.5 K/mcL (4.3-11.1)
[2019-04-25 06:09] LABS: Calcium 8.4 mg/dL (8.6-10.3); Magnesium 1.6 mg/dL (1.6-2.6)
[2019-04-25 06:22] LABS: Thyroid Stimulating Hormone 2.096 mcIU/mL (0.340-5.600)
[2019-04-25] MEDS: Loratadine 10 MG TABLET PO SCH (07:57)
[2019-04-25] MEDS: Diltiazem CD (24hr) 240 MG CAPSULE PO SCH (07:57)
[2019-04-25] MEDS: Metoprolol XL (24 HR) Succ 50 MG TAB.ER.24H PO SCH (07:57)
[2019-04-25] MEDS: *HR* Dabigatran 75 MG CAPSULE PO SCH ×2 (07:57→20:04)
[2019-04-25] MEDS: Vitamin B Complex/Vit C/Vit E 1 EACH TABLET PO SCH (07:57)
[2019-04-25] MEDS: Budesonide/Formoterol 160/4.5 1 PUFF INH IH SCH ×2 (08:17→19:59)
[2019-04-25] MEDS ORDERED: Metoprolol XL (24 HR) Succ 50 MG TAB.ER.24H PO SCH (09:52)
[2019-04-25] MEDS ORDERED: Furosemide 20 MG/2 ML VIAL IVP ONE (09:57)
[2019-04-25] MEDS ORDERED: Diltiazem CD (24hr) 120 MG CAPSULE PO ONE (10:08)
[2019-04-25] MEDS ORDERED: Metoprolol XL (24 HR) Succ 50 MG TAB.ER.24H PO ONE (12:35)
[2019-04-25] MEDS: Furosemide 20 MG/2 ML VIAL IVP SCH (20:04)
[2019-04-26 05:21] LABS: Basophils % 0.2 %; Eosinophils # 0.4 K/mcL (0.0-0.6); Eosinophils % 3.6 %; Hemoglobin 11.6 g/dL (11.5-15.4); Immature Granulocytes % 0.9 % (0-4); Lymphocytes # 2.8 K/mcL (0.6-4.6); Lymphocytes % 26.2 %; Mean Corpuscular HGB Conc 32.2 g/dL (31.6-35.5); Mean Corpuscular Hemoglobin 30.5 pg (28.0-33.3); Mean Corpuscular Volume 94.7 fL (83.0-100.0); Mean Platelet Volume 10.6 fL (9.4-12.4); Monocytes % 9.1 %; Neutrophils # 6.4 K/mcL (1.6-8.9); Platelet Count 186 K/mcL (140-400); Red Cell Distribution Width 14.5 % (11.5-14.5); White Blood Count 10.7 K/mcL (4.3-11.1)
[2019-04-26 05:40] LABS: Calcium 8.7 mg/dL (8.6-10.3); Magnesium 1.9 mg/dL (1.6-2.6); Potassium 3.8 mEq/L (3.5-5.1)
[2019-04-26 07:13] VITALS: BP 127/72
[2019-04-26] MEDS: Budesonide/Formoterol 160/4.5 1 PUFF INH IH SCH (07:25)
[2019-04-26] MEDS: *HR* Dabigatran 75 MG CAPSULE PO SCH (07:46)
[2019-04-26] MEDS: Loratadine 10 MG TABLET PO SCH (07:46)
[2019-04-26] MEDS: Vitamin B Complex/Vit C/Vit E 1 EACH TABLET PO SCH (07:46)
[2019-04-26] MEDS: Furosemide 20 MG/2 ML VIAL IVP SCH (07:46)
[2019-04-26] MEDS ORDERED: Diltiazem CD (24hr) 180 MG CAPSULE PO SCH (09:00)
[2019-04-26] MEDS ORDERED: Furosemide 20 MG TABLET PO SCH (09:00)
[2019-04-26] MEDS ORDERED: Metoprolol XL (24 HR) Succ 50 MG TAB.ER.24H PO SCH (09:00)
[2019-04-27] MEDS ORDERED: Furosemide 20 MG TABLET PO SCH (09:00)
== END 2019-04-26 11:43 | disposition home or self-care (01) | DRG 308 ==
LOC: EMEROOARM 13:17 → 2NENU 13:17 → SUATTDRO 18:29 → 2NENU 19:40
PROVIDERS: ADMIT Student in an Organized Health Care Education/Training Program; ATTEND Pharmacist